=== PATIENT | female | born 1935 | race Caucasian/White ===

== ENCOUNTER 2021-12-17 13:59 | Inpatient (IN) | payer MEDICARE, OTHER, SELFPAY ==
--- NOTE | ~2021-12-17 | CT_ITS ---
EXAMINATION: CT ANGIOGRAM OF THE CHEST WITH AND WITHOUT CONTRAST (CT PULMONARY ANGIOGRAM FOR PE) CLINICAL INFORMATION: Reason for Exam weakness, sob COMPARISON: None TECHNIQUE: Prior to contrast administration, noncontrast localization images were obtained. Subsequently, multidetector volumetric imaging was performed from the thoracic inlet to below the diaphragms following the administration of 85 mL Omnipaque 350 intravenous contrast. No contrast reaction reported Sagittal, coronal, and MIP oblique sagittal reformatted images were obtained on the CT workstation, uploaded to PACS, and reviewed. This CT examination was performed using dose optimization techniques as appropriate, variously including the following: *Automated exposure control *Adjustment of mA and/or kV according to patient size (this includes techniques or standardized protocols for targeted exams where dose is matched to indication/reason for exam; i.e. extremities or head) *Use of iterative reconstruction technique Total exam dose-length product 265.98 mGy-cm FINDINGS: QUALITY OF STUDY/CONTRAST BOLUS: Satisfactory. PULMONARY ARTERIES: There is nonocclusive clot is identified in the right lower lobe pulmonary arteries most likely from. The rest of pulmonary arteries are patent. THORACIC AORTA: No aneurysm or dissection. LUNG: No focal consolidation, nodules or masses. PLEURA: No pleural effusion or pneumothorax. MEDIASTINUM: Normal heart size. No pericardial effusion. No hilar or mediastinal lymphadenopathy. No evidence of septal bowing or right heart strain. CHEST WALL/AXILLA: No axillary or internal mammary lymphadenopathy. OSSEOUS STRUCTURES: There is diffuse osteopenia, kyphotic deformity and compression deformity of a few vertebral bodies. UPPER ABDOMEN: Unremarkable. No reflux of contrast into the hepatic veins to suggest elevated right heart pressures. CT/CT angio chest PE protocol IMPRESSION: Positive for pulmonary embolism with a nonocclusive linear clots seen in secondary pulmonary arteries of right lower lobe pulmonary. VTE: positive Critical result reported to Dulce Crow NP at 8:32 PM on 12/17/2021
--- NOTE | ~2021-12-17 | CT_ITS ---
EXAMINATION: CT HEAD WITHOUT CONTRAST CLINICAL INFORMATION: Acute mental status change COMPARISON: None TECHNIQUE: Contiguous axial imaging was performed from the skull base to vertex without intravenous administration of contrast. This CT examination was performed using dose optimization techniques as appropriate, variously including the following: *Automated exposure control *Adjustment of mA and/or kV according to patient size (this includes techniques or standardized protocols for targeted exams where dose is matched to indication/reason for exam; i.e. extremities or head) *Use of iterative reconstruction technique DLP: 636.64 mGy-cm FINDINGS: There is no evidence of acute intracranial hemorrhage or territorial infarction. No abnormal mass effect or midline shift is seen. [place] to white matter differentiation is well preserved. No extra-axial fluid collections are identified. The ventricles are dilated due to central volume loss. Sulci are prominent. Within the periventricular white matter changes consistent with sequela of microangiopathy. The osseous structures and soft tissues are normal. The mastoid air cells and visualized portions of the paranasal sinuses are well aerated. CT/CT head/brain wo con IMPRESSION: No acute intracranial pathology. Sequela of microangiopathy and central atrophy.
--- NOTE | ~2021-12-17 | US_ITS ---
EXAMINATION: US VENOUS ULTRASOUND WITH DOPPLER LOWER EXTREMITY, BILATERAL CLINICAL INFORMATION: Pulmonary embolism. COMPARISON: None TECHNIQUE: Ultrasound of the deep veins is performed from the hip to the calf with compression sonography and color and pulse Doppler assessment. Spectral analysis with color-flow imaging is performed. FINDINGS: RIGHT: There is normal venous compression and respiratory variation and augmented flow. The visualized common femoral vein, superficial femoral vein, profunda femoral vein, popliteal vein, and the trifurcation region shows no evidence of deep venous thrombosis. There is a popliteal cyst measuring 2.7 x 0.8 x 1.8 cm. LEFT: There is normal venous compression and respiratory variation and augmented flow. The visualized common femoral vein, superficial femoral vein, profunda femoral vein, popliteal vein, and the trifurcation region shows no evidence of deep venous thrombosis. There is no significant popliteal fossa cyst. If the patient's symptoms persist, followup ultrasound in 5 days 7 days might be of value to exclude proximal propagation from a non-visualized calf vein. US/US venous duplex LE BI IMPRESSION: No DVT demonstrated in the bilateral lower extremities.
--- NOTE | ~2021-12-17 | CT_ITS ---
EXAMINATION: CT ABDOMEN AND PELVIS WITH CONTRAST CLINICAL INFORMATION: Abdominal pain COMPARISON: None TECHNIQUE: Multidetector volumetric images were obtained from the superior aspect of the liver through the pubic symphysis following administration 85 mL of Omnipaque 350 intravenous contrast. Sagittal and coronal reformatted images were obtained on the technologist's workstation. Oral contrast: No This CT examination was performed using dose optimization techniques as appropriate, variously including the following: *Automated exposure control *Adjustment of mA and/or kV according to patient size (this includes techniques or standardized protocols for targeted exams where dose is matched to indication/reason for exam; i.e. extremities or head) *Use of iterative reconstruction technique DLP: 642.86 mGy-cm FINDINGS: LUNG BASES: The visualized lung bases are unremarkable. LIVER, GALLBLADDER, AND BILIARY TREE: The liver is normal in size, shape, and attenuation. No focal hepatic lesion or biliary ductal dilatation is present. The gallbladder is unremarkable with no evidence of radiopaque gallstones, gallbladder wall thickening, or obvious pericholecystic inflammatory changes. PANCREAS: There is dilated pancreatic duct measured 0.4 cm no masses or pancreatitis. SPLEEN: Unremarkable. ADRENAL GLANDS: Unremarkable. KIDNEYS AND URETERS: The kidneys are normal in size, shape, and attenuation. No hydronephrosis, hydroureter, or calculi seen. No perinephric stranding. BLADDER: Unremarkable. GASTROINTESTINAL TRACT: There is large amount of feces seen through the colon There is no bowel obstruction no evidence of diverticulitis. The appendix not identified. Scattered diverticula are present. ABDOMINAL WALL: No significant hernia is appreciated. LYMPH NODES: Normal. VASCULAR: Abdominal aorta is tortuous but not dilated. PELVIC VISCERA: There is hazy mesentery in the pelvis and lower abdomen and there is questionable pelvic mass likely related uterus but due to paucity of fat, diffuse haziness of the mesentery and irregular mass lesion extending from the pelvis details obscured OSSEOUS STRUCTURES: There is diffuse osteopenia and compression deformities of L4, L3, L1 of indeterminate age, most likely due to osteopenia. CT/CT abdomen pelvis w con IMPRESSION: Technically limited study revealed large amount of retained feces. There is pelvic mass extending from the uterus correlate with pelvic ultrasound. Multiple compression deformities of lumbar spine vertebral bodies. Dilated pancreatic duct Fleischner guidelines were followed.
--- NOTE | ~2021-12-17 | US_ITS ---
EXAMINATION: US PELVIS CLINICAL INFORMATION: Pelvic mass COMPARISON: CT abdomen and pelvis 12/17/2021. TECHNIQUE: Ultrasound of the pelvis is performed using a transabdominal transducer along with Doppler. Transvaginal imaging was not tolerated by the patient. FINDINGS: Uterus: The uterus is anteverted and measures 6.5 x 2.7 x 6.1 cm. The endometrium is abnormally thickened measuring 1.6 cm which corresponds to the abnormality seen on pelvic CT. Adnexa: Neither ovary is seen. No pelvic free fluid. US/US pelvic complete IMPRESSION: Abnormally thickened endometrial stripe measuring 1.6 cm. Gynecology consultation recommended.
--- NOTE | ~2021-12-17 | MR_ITS ---
EXAMINATION: MR PELVIS WITHOUT CONTRAST CLINICAL INFORMATION: Pelvic mass COMPARISON: Previous pelvic ultrasound and abdominal and pelvic CT from earlier this month TECHNIQUE: Sagittal axial and coronal sequences through the pelvis without IV contrast. Patient refused IV contrast. FINDINGS: The uterus is deviated to the right. The uterus is anteverted and measures 7 x 3.5 x 5 cm in sagittal AP and transverse dimension. The endometrium is abnormally thickened for a postmenopausal patient measuring 1.8 cm. The endometrium appears slightly heterogeneous. There also appears to be a focal area of heterogeneous endometrial thickening measuring up to 1.0 cm in the lower uterine segment or cervix/endocervical canal. The ovaries are not seen. The bladder is normal. There is stool throughout the colon suggestive of constipation. No ascites or adenopathy is seen. No hernia is seen. Visualized vascular structures are normal. There are degenerative changes of the spine. MR/MR pelvis wo con IMPRESSION: Abnormally thickened heterogeneous endometrium measuring up to 1.8 cm. There also appears to be a second focal area of heterogeneity and thickening of the endometrium in the lower uterine segment or endocervical canal measuring up to 1.0 cm. DIRECTOR OF STUDENT SERVICES consultation recommended. Ovaries not seen. Constipation.
[2021-12-17 14:24] VITALS: BP 88/48; PULSE 72; RESP 18; TEMP 36.9; O2SAT 93; BMI 21.7
--- NOTE | 2021-12-17 15:15 | ECG_ITS ---
Test Reason : AMS Blood Pressure : / mmHG Vent. Rate : 059 BPM Atrial Rate : 059 BPM P-R Int : 160 ms QRS Dur : 096 ms QT Int : 448 ms P-R-T Axes : 042 -03 036 degrees QTc Int : 443 ms Sinus bradycardia Otherwise normal ECG No previous ECGs available Referred By: Ashley Clancy Electronically Signed By:Maximo Mujica
--- NOTE | 2021-12-17 15:31 | ED_ITS ---
HPI - Altered Mental Status General Chief Complaint: Altered Mental Status Stated Complaint: confusion quest uti Time Seen by Provider: 12/17/21 15:15 Source: patient Mode of arrival: ambulatory Limitations: altered mental status History of Present Illness HPI narrative: This is an 86-year-old female pmhx htn, hld presenting to the emergency department with her family members were concerned that she has been on altered for the past few days, she has been weak, has not been eating or drinking much, has been forgetting to take her medications X2 days. Family members tell me that at baseline she is confused however lately it seems as though this is progressing. Patient lives at home by herself. They do not think she has fallen however unsure. Family members tell me that they go to visit her daily and they checked in on her and she just did not appear like her typical self. Patient tells me she is having no pain however family members tell me they think that she is having pain in her back. Unable to answer an accurate review of systems. Patient laughs and tells me she is okay. complaint: altered mental status and confusion Onset (ago): day(s) Severity: moderate Associated symptoms: denies other symptoms Related Data Allergies Allergy/AdvReac Type Severity Reaction Status Date / Time Sulfa (Sulfonamide Allergy Unknown Verified 12/17/21 14:35 Antibiotics) Review of Systems Review of Systems: Yes Unobtainable due to mental status PMFSH Past Medical History Attestation statement: The following information was validated with the patient. Source: old records reviewed and nursing notes reviewed Medical History (Updated 12/17/21 @ 18:02 by ALEXIS Eaton) Edema HLD (hyperlipidemia) Social History Social History Advance Directives: Yes Advance Directives Information Provided: No Advance Directives on File: No Physical Exam ED Vital Signs: Vital Signs - 24 hr 12/17/21 14:24 12/17/21 16:47 Temperature 98.5 F 97.5 F Pulse Rate 72 56 Respiratory Rate 18 20 Blood Pressure 88/48 L 133/71 Pulse Oximetry 93 97 BMI result Body Mass Index 21.7 Patient noted to be slightly hypotensive. Appearance: Alert.? Oriented X3.? No acute distress.? Head: Normocephalic, atraumatic, no step-offs or deformities Eyes: Pupils equal, round and reactive to light.? ENT: Pharynx normal.? Neck: Normal inspection.? Neck supple.? CVS: Normal heart rate and rhythm.? Pulses normal.? Respiratory: No respiratory distress.? Breath sounds normal.? Abdomen: Soft and +diffusely tender..? Skin: Skin warm and dry.? Normal skin color.? Normal skin turgor.? Extremities: + 2+ non pitting edema b/l.? No calf ttp, negative keagan b/l. 5/5 strength to bilateral upper and lower extremities Back: No midline tenderness, no C-spine tenderness, full range of motion, no CVA tenderness bilaterally Neuro: Oriented X 3.? No motor deficit.? No sensory deficit. CN 2-12 intact Course Reevaluation(s) Reevaluation #1: CBC within normal limits. BNP slightly elevated to 214. Chemistry with a slightly elevated BUN however patient tolerating p.o. fluids. Will encourage hydration. Lactic acid negative. No other acute electrolyte abnormalities requiring intervention. UA negative. I suspect PE patient's change in mentation is likely secondary to an undiagnosed dementia. Patient's long-term memory appears to be better than her short term. His workup is negative patient can likely be discharged home. She could be a good candidate for PT/case management as she does not have any resources at home. Pending scans. At this time sign-out given to SHERIE Cardona. Time: 18:01 MDM - Altered Mental Status [facility] Narrative Medical decision making narrative: 1534 86 yo f presents w/ family who report ams X2 days Patient alert and oriented x4. Diffusely tender abdomen upon exam. Cranial nerves 2-12 intact. No focal neuro deficits. Lungs clear. Regular rate and rhythm. Pupils equal round and reactive to light. Unlikely that this is a stroke. Likely urinary tract infection. Will rule out electrolyte abnormalities as well. As well as a pulmonary embolism. Medical Records Attestation: I reviewed the patient's medical records. Lab Data Attestation: I reviewed the patient's lab results. Result diagrams: 12/17/21 16:05 12/17/21 17:13 Labs: Lab Results 12/17/21 12/17/21 12/17/21 Range/Units 16:05 16:05 16:05 WBC 7.5 (4.8-10.8) X10*3/uL RBC 4.71 (4.20-5.50) X10*6/uL Hgb 14.7 (12.0-16.0) g/dl Hct 44.7 (37.0-47.0) % MCV 94.9 (80.0-98.0) fL MCH 31.2 (27.0-33.0) pg MCHC 32.9 (31.0-35.0) g/dl RDW 12.1 (11.0-16.0) % Plt Count 164 (160-400) X10*3/uL MPV 10.2 (9.4-12.3) fL Immature Gran % (Auto) 0.7 H (0.0-0.4) % Neut % (Auto) 88.3 H (45-73) % Lymph % (Auto) 3.9 L (20-40) % [place] % (Auto) 6.8 (2-11) % Eos % (Auto) 0.0 (0-4) % Baso % (Auto) 0.3 (0-2) % Lymph # (Auto) 0.3 L (1.2-4.9) X10*3/uL [place] # (Auto) 0.5 (0.1-1.2) X10*3/uL Eos # (Auto) 0.0 (0.0-0.4) X10*3/uL Baso # (Auto) 0.0 (0.0-0.2) X10*3/uL Abs Immat Gran (auto) 0.05 H (0.00-0.03) X10*3/uL Absolute Neuts (auto) 6.6 (2.0-8.3) x10*3/uL Absolute Nucleated RBC 0.000 (0.0-0.012) X10*3/uL Nucleated RBC % (auto) 0.0 (0.0-0.2) /100WBC Sodium (135-145) mmol/L Potassium (3.3-5.1) mmol/L Chloride (96-108) mmol/L Carbon Dioxide (22-29) mmol/L Anion Gap (12-20) BUN (9-16) mg/dL Creatinine (0.5-1.4) mg/dL Estim Creat Clear Calc Estimated GFR Random Glucose (60-115) mg/dL Lactic Acid 2.0 (0.5-2.0) mmol/L Calcium (8.4-10.2) mg/dL Magnesium (1.6-2.6) mg/dL Total Bilirubin (0.0-1.0) mg/dL AST (5-31) U/L ALT (0-31) U/L Alkaline Phosphatase (39-117) U/L Total Creatine Kinase (26-140) U/L B-Natriuretic Peptide 214 H (<100) pg/mL Total Protein (6.5-8.0) g/dL Albumin (3.5-5.0) g/dL Lipase (8-78) U/L Urine Color Urine Appearance Urine pH (5.0-8.0) Ur Specific Industry (1.005-1.025) Urine Protein (NEG-TRACE) MG/DL Urine Glucose (UA) (NEG) MG/DL Urine Ketones (NEG) MG/DL Urine Blood (NEG) Urine Nitrite (NEG) Ur Leukocyte Esterase (NEG) COVID-19 (MARIANA) (Negative) COVID-19 Clin Com 12/17/21 12/17/21 12/17/21 Range/Units 16:15 17:13 17:13 WBC (4.8-10.8) X10*3/uL RBC (4.20-5.50) X10*6/uL Hgb (12.0-16.0) g/dl Hct (37.0-47.0) % MCV (80.0-98.0) fL MCH (27.0-33.0) pg MCHC (31.0-35.0) g/dl RDW (11.0-16.0) % Plt Count (160-400) X10*3/uL MPV (9.4-12.3) fL Immature Gran % (Auto) (0.0-0.4) % Neut % (Auto) (45-73) % Lymph % (Auto) (20-40) % [place] % (Auto) (2-11) % Eos % (Auto) (0-4) % Baso % (Auto) (0-2) % Lymph # (Auto) (1.2-4.9) X10*3/uL [place] # (Auto) (0.1-1.2) X10*3/uL Eos # (Auto) (0.0-0.4) X10*3/uL Baso # (Auto) (0.0-0.2) X10*3/uL Abs Immat Gran (auto) (0.00-0.03) X10*3/uL Absolute Neuts (auto) (2.0-8.3) x10*3/uL Absolute Nucleated RBC (0.0-0.012) X10*3/uL Nucleated RBC % (auto) (0.0-0.2) /100WBC Sodium 137 (135-145) mmol/L Potassium 4.4 (3.3-5.1) mmol/L Chloride 105 (96-108) mmol/L Carbon Dioxide 21 L (22-29) mmol/L Anion Gap 15 (12-20) BUN 27 H (9-16) mg/dL Creatinine 0.90 (0.5-1.4) mg/dL Estim Creat Clear Calc 36.1 Estimated GFR 60 Random Glucose 142 H (60-115) mg/dL Lactic Acid (0.5-2.0) mmol/L Calcium 8.6 (8.4-10.2) mg/dL Magnesium 2.4 (1.6-2.6) mg/dL Total Bilirubin 0.7 (0.0-1.0) mg/dL AST 19 (5-31) U/L ALT 9 (0-31) U/L Alkaline Phosphatase 65 (39-117) U/L Total Creatine Kinase 133 (26-140) U/L B-Natriuretic Peptide (<100) pg/mL Total Protein 6.3 L (6.5-8.0) g/dL Albumin 3.4 L (3.5-5.0) g/dL Lipase 74 (8-78) U/L Urine Color Urine Appearance Urine pH (5.0-8.0) Ur Specific [place] (1.005-1.025) Urine Protein (NEG-TRACE) MG/DL Urine Glucose (UA) (NEG) MG/DL Urine Ketones (NEG) MG/DL Urine Blood (NEG) Urine Nitrite (NEG) Ur Leukocyte Esterase (NEG) COVID-19 (MARIANA) Negative (Negative) COVID-19 Clin Com See Note 12/17/21 Range/Units 17:14 WBC (4.8-10.8) X10*3/uL RBC (4.20-5.50) X10*6/uL Hgb (12.0-16.0) g/dl Hct (37.0-47.0) % MCV (80.0-98.0) fL MCH (27.0-33.0) pg MCHC (31.0-35.0) g/dl RDW (11.0-16.0) % Plt Count (160-400) X10*3/uL MPV (9.4-12.3) fL Immature Gran % (Auto) (0.0-0.4) % Neut % (Auto) (45-73) % Lymph % (Auto) (20-40) % [place] % (Auto) (2-11) % Eos % (Auto) (0-4) % Baso % (Auto) (0-2) % Lymph # (Auto) (1.2-4.9) X10*3/uL [place] # (Auto) (0.1-1.2) X10*3/uL Eos # (Auto) (0.0-0.4) X10*3/uL Baso # (Auto) (0.0-0.2) X10*3/uL Abs Immat Gran (auto) (0.00-0.03) X10*3/uL Absolute Neuts (auto) (2.0-8.3) x10*3/uL Absolute Nucleated RBC (0.0-0.012) X10*3/uL Nucleated RBC % (auto) (0.0-0.2) /100WBC Sodium (135-145) mmol/L Potassium (3.3-5.1) mmol/L Chloride (96-108) mmol/L Carbon Dioxide (22-29) mmol/L Anion Gap (12-20) BUN (9-16) mg/dL Creatinine (0.5-1.4) mg/dL Estim Creat Clear Calc Estimated GFR Random Glucose (60-115) mg/dL Lactic Acid (0.5-2.0) mmol/L Calcium (8.4-10.2) mg/dL Magnesium (1.6-2.6) mg/dL Total Bilirubin (0.0-1.0) mg/dL AST (5-31) U/L ALT (0-31) U/L Alkaline Phosphatase (39-117) U/L Total Creatine Kinase (26-140) U/L B-Natriuretic Peptide (<100) pg/mL Total Protein (6.5-8.0) g/dL Albumin (3.5-5.0) g/dL Lipase (8-78) U/L Urine Color YELLOW Urine Appearance CLEAR Urine pH 6.0 (5.0-8.0) Ur Specific [place] 1.025 (1.005-1.025) Urine Protein TRACE (NEG-TRACE) MG/DL Urine Glucose (UA) NEG (NEG) MG/DL Urine Ketones 5 (NEG) MG/DL Urine Blood NEG (NEG) Urine Nitrite NEG (NEG) Ur Leukocyte Esterase NEG (NEG) COVID-19 (MARIAAN) (Negative) COVID-19 Clin Com ECG Data ECG #1: Attestation: I personally reviewed and interpreted this ECG as follows: ECG interpretation date: 12/17/21 ECG interpretation time: 17:24 Prior ECG tracings: available for review Critical Care Time Critical Care Time Critical Care Time: No Discharge Plan Discharge Clinical Impression: Altered mental status Patient Disposition: Still a Patient
[2021-12-17 16:09] LABS: MANUAL DIFF FLAG NO
[2021-12-17] MEDS: 0.9 % Sodium Chloride 1,000 ML 999 ML IV (16:18)
[2021-12-17 16:21] LABS: Basophils Percent Auto 0.3 % (0-2); Hematocrit 44.7 % (37.0-47.0); Hemoglobin 14.7 g/dl (12.0-16.0); Imm Gran Abs Auto 0.05 X10*3/uL (0.00-0.03); Imm Gran Pct Auto 0.7 % (0.0-0.4); Lymphocytes Absolute Auto 0.3 X10*3/uL (1.2-4.9); Lymphocytes Percent Auto 3.9 % (20-40); Mean Corpuscular HGB Conc 32.9 g/dl (31.0-35.0); Mean Corpuscular Hemoglobin 31.2 pg (27.0-33.0); Mean Corpuscular Volume 94.9 fL (80.0-98.0); Mean Platelet Volume 10.2 fL (9.4-12.3); Monocytes Absolute Auto 0.5 X10*3/uL (0.1-1.2); Monocytes Percent Auto 6.8 % (2-11); Neutrophils Absolute Auto 6.6 x10*3/uL (2.0-8.3); Neutrophils Percent Auto 88.3 % (45-73); Platelet Count 164 X10*3/uL (160-400); Red Blood Count 4.71 X10*6/uL (4.20-5.50); Red Cell Distribution Width 12.1 % (11.0-16.0); White Blood Count 7.5 X10*3/uL (4.8-10.8)
[2021-12-17 16:29] LABS: B Type Natriuretic Peptide 214 pg/mL (<100)
[2021-12-17 16:41] LABS: COVID-19 Test Negative (Negative); IDNOW Serial# 16C4AD1C
[2021-12-17 16:47] VITALS: BP 133/71; PULSE 56; RESP 20; TEMP 36.4; O2SAT 97
[2021-12-17 17:22] LABS: Appearance Urine CLEAR; Color Urine YELLOW; Glucose Urine UA NEG (NEG); Leukocyte Esterase Urine NEG (NEG); Nitrite Urine NEG (NEG); Specific Gravity - Urine 1.025 (1.005-1.025); Urine Blood NEG (NEG); Urine Ketones 5 MG/DL (NEG); Urine Protein TRACE MG/DL (NEG-TRACE)
[2021-12-17 17:41] LABS: Alanine Aminotransferase 9 U/L (0-31); Albumin Level 3.4 g/dL (3.5-5.0); Alkaline Phosphatase 65 U/L (39-117); Anion Gap 15 (12-20); Aspartate Amino Transferase 19 U/L (5-31); Bilirubin Total 0.7 mg/dL (0.0-1.0); Blood Urea Nitrogen 27 mg/dL (9-16); Calcium 8.6 mg/dL (8.4-10.2); Carbon Dioxide 21 mmol/L (22-29); Chloride 105 mmol/L (96-108); Creatinine Clr Calc Pharmacy 36.1; Estimated Glomerular Filt Rate 60; Glucose Random 142 mg/dL (60-115); Lipase 74 U/L (8-78); Magnesium 2.4 mg/dL (1.6-2.6); Potassium 4.4 mmol/L (3.3-5.1); Sodium 137 mmol/L (135-145); Total Protein 6.3 g/dL (6.5-8.0)
[2021-12-17] MEDS: iohexoL 350 MG/ML 100 ML INFUS..BTL IV (18:42)
[2021-12-17 19:00] VITALS: BP 144/76; PULSE 56; RESP 18; TEMP 36.4; O2SAT 97
[2021-12-17 20:13] VITALS: BP 163/79; PULSE 56; RESP 13; O2SAT 99
--- NOTE | 2021-12-17 21:00 | PHA.MEDREC ---
Pharmacy Consult ? Medication Reconciliation Pharmacy has completed the medication reconciliation. Daughter at bedside, no remarkable issues. Jenna Mills, SejalD
[2021-12-17 21:26] LABS: Hematocrit 41.8 % (37.0-47.0); Hemoglobin 13.9 g/dl (12.0-16.0); Mean Corpuscular HGB Conc 33.3 g/dl (31.0-35.0); Mean Corpuscular Hemoglobin 31.4 pg (27.0-33.0); Mean Corpuscular Volume 94.6 fL (80.0-98.0); Mean Platelet Volume 9.5 fL (9.4-12.3); Platelet Count 151 X10*3/uL (160-400); Red Blood Count 4.42 X10*6/uL (4.20-5.50); Red Cell Distribution Width 12.1 % (11.0-16.0); White Blood Count 6.6 X10*3/uL (4.8-10.8)
[2021-12-17 21:38] LABS: INTERNATIONAL NORM RATIO 1.2 (0.9-1.1); Prothrombin Time 13.4 SEC (9.9-13.0)
[2021-12-17 21:54] LABS: Partial Thromboplastin Time 23.5 SEC (24.1-38.0)
[2021-12-17] MEDS: Enoxaparin Sodium 60 MG/0.6 ML SYRINGE 50 MG SUBCUT (22:35)
--- NOTE | 2021-12-17 23:09 | PM.IMHP ---
History of Present Illness Date of Service: 12/17/21 Chief Complaint: Altered mental status 86-year-old female with a past medical history of hypertension, hyperlipidemia presented to the hospital with a chief complaint of altered mental status. Most of the history obtained from the patient's family who mentioned that patient was noted to be more confused than her baseline. Usually patient is forgetful but today noted to be more confused hence brought her to the hospital for further evaluation. Mentions that patient had similar episode of confusion when she had UTI. Denies any chest pain palpitations lightheadedness or dizziness. Denies any falls or trauma. Mentions walks at home with the help of a walker. Reports low back pain. Denies any stool accident or urinary incontinence. Denies any burning frequency or urgency. Denies any signs of bleeding. Review of all other systems is negative except mentioned above ER course: Per ER team patient urinalysis was negative; CT scan showed no evidence of pneumonia; CT abdomen pelvis showed constipation as well as vertebral compression fractures-age indeterminate. CT chest showed pulmonary embolism-given Lovenox. Admitted for further management [facility] Medical History (Updated 02/10/22 @ 19:23 by Roel Tariq MD) Edema Endometrial thickening on ultrasound HLD (hyperlipidemia) Labial lesion Pulmonary embolism Pertinent family history: Patient unable to provide information Social History Household Members: Unknown / Unable to assess Housing: Unknown / Unable to assess Housing Other:: pt states family and neighbor helps her out, but unclear living situation Do you presently have visiting nurse or other home services: No Patient Tobacco Use Status: Never used Tobacco Use of substances other than those prescribed or required for medical reasons: No Currently Displaying Signs/Symptoms of Drug Intoxication Withdrawal: No Have you been hit, kicked, punched, or otherwise hurt by someone within the past year? If so, by whom?: No Do you feel safe in your current relationship?: No Is there a partner from a previous relationship who is making you feel unsafe now?: No Are you made to feel afraid or neglected: No Advance Directives: Yes Advance Directives Information Provided: No Advance Directives on File: No Advance Directives Date on File: 12/18/21 Do you have thoughts of harming others: None Do you have a plan to hurt others: No Plan Recently lost weight without trying: Unsure Eating poorly because of decreased appetite: No Nutrition Risks: No Nutritional Risk Patient : No : No Poor oral hygiene: No service: No Current occupational status: retired Meds Allergies Allergy/AdvReac Type Severity Reaction Status Date / Time Sulfa (Sulfonamide Allergy Unknown Verified 12/17/21 14:35 Antibiotics) Active Medications: Current Medications Acetaminophen (Acetaminophen 325 Mg Tablet) 650 mg PO Q6H PRN PRN Reason: Pain, Mild (Pain Scale 1-3) Atenolol (Atenolol 25 Mg Tablet) 12.5 mg PO DAILY PRISCILA; Protocol Cyanocobalamin (Cyanocobalamin (Vitamin B-12) 1,000 Mcg Tablet) 1,000 mcg PO Q OTHER DAY PRISCILA Docusate Sodium (Docusate Sodium 100 Mg Capsule) 100 mg PO BID PRISCILA Enoxaparin Sodium (Enoxaparin Sodium 60 Mg/0.6 Ml Syringe) 50 mg 1 mg/kg (50 mg) SUBCUT Q12H PRISCILA Dextrose/Sodium Chloride (D51/2ns) 1,000 mls @ 75 mls/hr IVCONT .[id number] PRISCILA Magnesium Hydroxide (Milk Of Magnesia 30 Ml Oral.Susp) 30 ml PO DAILY PRN PRN Reason: Constipation Melatonin (Melatonin 3 Mg Tablet) 6 mg PO BEDTIME PRN PRN Reason: Insomnia Non-Formulary Medication (Calcium Citrate-Vitamin D3 [Citracal + D Maximum]) 1 tab PO Q OTHER DAY PRISCILA Non-Formulary Medication (Simvastatin) 1 tab PO BEDTIME PRISCILA Senna (Sennosides 8.6 Mg Tablet) 17.2 mg PO BEDTIME PRN PRN Reason: Constipation Sodium Chloride (0.9 % Sodium Chloride Flush 3 Ml Syringe) 3 ml IVFLUSH QSHIFT PRISCILA Temazepam (Temazepam 15 Mg Capsule) 15 mg PO BEDTIME PRN PRN Reason: Insomnia Home Medications Medication Instructions Recorded Confirmed Last Taken Type atenolol 25 mg tablet 12.5 mg PO DAILY 12/17/21 12/17/21 12/17/21 History calcium citrate 315 mg 1 tab PO Q OTHER DAY 12/17/21 12/17/21 12/16/21 History calcium-vitamin D3 6.25 mcg (250 unit) tablet (Citracal + Vitamin D Maximum) cyanocobalamin (vitamin B-12) 1,000 mcg PO Q OTHER DAY 12/17/21 12/17/21 12/16/21 History 1,000 mcg tablet furosemide 20 mg tablet 10 mg PO DAILY 12/17/21 12/17/21 12/17/21 History simvastatin 20 mg tablet 1 tab PO BEDTIME 12/17/21 12/17/21 12/16/21 History Physical Exam Vital Signs and Narrative: Vital Signs: Last Vital Signs Temp 97.5 F 12/17/21 19:00 Pulse 56 12/17/21 20:13 Resp 13 12/17/21 20:13 BP 163/79 H 12/17/21 20:13 Pulse Ox 99 12/17/21 20:13 BMI result Body Mass Index 21.7 Gen: Appears be in no acute distress HEENT: NCAT, Moist mucosa. Pulmonary: Vesicular breath sounds, fair air entry CVS: Normal S1-S2 Abdomen: BS+, Soft, Nontender Extremities: Warm well perfused Neuro: Alert and awake. Moves all extremities equally. Sensations equal bilaterally. Cranial nerves intact. Results Labs CBC and Chem 7: 12/22/21 05:29 12/21/21 20:00 Labs: Laboratory Results - last 24 hr 12/17/21 12/17/21 12/17/21 16:05 16:05 16:05 MCV 94.9 MCH 31.2 MCHC 32.9 RDW 12.1 Plt Count 164 MPV 10.2 Immature Gran % (Auto) 0.7 H Neut % (Auto) 88.3 H Lymph % (Auto) 3.9 L [place] % (Auto) 6.8 Eos % (Auto) 0.0 Baso % (Auto) 0.3 Lymph # (Auto) 0.3 L [place] # (Auto) 0.5 Eos # (Auto) 0.0 Baso # (Auto) 0.0 Abs Immat Gran (auto) 0.05 H Absolute Neuts (auto) 6.6 Absolute Nucleated RBC 0.000 Nucleated RBC % (auto) 0.0 PT INR APTT Anion Gap Estim Creat Clear Calc Estimated GFR Random Glucose Lactic Acid 2.0 Calcium Magnesium Total Bilirubin AST ALT Alkaline Phosphatase Total Creatine Kinase B-Natriuretic Peptide 214 H Total Protein Albumin Lipase Urine Color Urine Appearance Urine pH Ur Specific [place] Urine Protein Urine Glucose (UA) Urine Ketones Urine Blood Urine Nitrite Ur Leukocyte Esterase COVID-19 (MARIANA) COVID-19 Clin Com 12/17/21 12/17/21 12/17/21 16:15 17:13 17:13 MCV MCH MCHC RDW Plt Count MPV Immature Gran % (Auto) Neut % (Auto) Lymph % (Auto) [place] % (Auto) Eos % (Auto) Baso % (Auto) Lymph # (Auto) [place] # (Auto) Eos # (Auto) Baso # (Auto) Abs Immat Gran (auto) Absolute Neuts (auto) Absolute Nucleated RBC Nucleated RBC % (auto) PT INR APTT Anion Gap 15 Estim Creat Clear Calc 36.1 Estimated GFR 60 Random Glucose 142 H Lactic Acid Calcium 8.6 Magnesium 2.4 Total Bilirubin 0.7 AST 19 ALT 9 Alkaline Phosphatase 65 Total Creatine Kinase 133 B-Natriuretic Peptide Total Protein 6.3 L Albumin 3.4 L Lipase 74 Urine Color Urine Appearance Urine pH Ur Specific [place] Urine Protein Urine Glucose (UA) Urine Ketones Urine Blood Urine Nitrite Ur Leukocyte Esterase COVID-19 (MARIANA) Negative COVID-19 Clin Com See Note 12/17/21 12/17/21 12/17/21 17:14 21:22 21:22 MCV 94.6 MCH 31.4 MCHC 33.3 RDW 12.1 Plt Count 151 L MPV 9.5 Immature Gran % (Auto) Neut % (Auto) Lymph % (Auto) [place] % (Auto) Eos % (Auto) Baso % (Auto) Lymph # (Auto) [place] # (Auto) Eos # (Auto) Baso # (Auto) Abs Immat Gran (auto) Absolute Neuts (auto) Absolute Nucleated RBC 0.000 Nucleated RBC % (auto) 0.0 PT 13.4 H INR 1.2 H APTT 23.5 L Anion Gap Estim Creat Clear Calc Estimated GFR Random Glucose Lactic Acid Calcium Magnesium Total Bilirubin AST ALT Alkaline Phosphatase Total Creatine Kinase B-Natriuretic Peptide Total Protein Albumin Lipase Urine Color YELLOW Urine Appearance CLEAR Urine pH 6.0 Ur Specific [place] 1.025 Urine Protein TRACE Urine Glucose (UA) NEG Urine Ketones 5 Urine Blood NEG Urine Nitrite NEG Ur Leukocyte Esterase NEG COVID-19 (MARIANA) COVID-19 Clin Com Imaging Radiologist's Impressions: Impressions Abdomen/Pelvis CT 12/17/21 19:05 IMPRESSION: Technically limited study revealed large amount of retained feces. There is pelvic mass extending from the uterus correlate with pelvic ultrasound. Multiple compression deformities of lumbar spine vertebral bodies. Dilated pancreatic duct Fleischner guidelines were followed. Chest CTA 12/17/21 19:05 IMPRESSION: Positive for pulmonary embolism with a nonocclusive linear clots seen in secondary pulmonary arteries of right lower lobe pulmonary. VTE: positive Critical result reported to Dulce Crow NP at 8:32 PM on 12/17/[address] 12/17/21 19:05 IMPRESSION: No acute intracranial pathology. Sequela of microangiopathy and central atrophy. Assessment and Plan (1) AMS (altered mental status): Status: Acute (2) Pulmonary embolism: Status: Acute Plan 86-year-old female with a past medical history of hypertension, hyperlipidemia presented to the hospital with a chief complaint of altered mental status. Altered mental status: Likely toxic metabolic encephalopathy in the setting of constipation/pulmonary embolism/pelvic mass/dehydration. Urinalysis negative. CT scan showed no evidence of pneumonia. CT head negative. Supportive care. Pulmonary embolism: Will continue Lovenox at therapeutic dose. Echocardiogram Oncology consult Will also obtain venous duplex Pelvic mass: Oncology consult as mentioned. Will also obtain pelvic ultrasound. Constipation: Bowel regimen Compression fractures: CT scan showed L1, L3, L4 compression deformities-age indeterminate. Family denies any falls or trauma. Patient has known history of osteoporosis. Patient on vitamin-D/calcium supplementation. Will also obtain vitamin-D 25 hydroxy levels. Explained to the family that no neurosurgery available at [facility]-agreed to stay. PT/OT eventually Fall precautions History of hypertension/hyperlipidemia: Continue home metoprolol/simvastatin. Hold Lasix for now. DVT prophylaxis: Patient on Lovenox Code status: DNR/DNI. Confirmed with the patient's family at bedside. Quality Stroke Does the patient have a stroke diagnosis?: No VTE Prior VTE?: No VTE Risk Level:: Medical - moderate - high VTE Device Contraindication: Treatment Not Indicated VTE Drug Contraindication: N/A - Med Ordered
[2021-12-17] MEDS: Dextrose 5 % and 0.45 % NaCl 1,000 ML 75 ML IVCONT (23:27)
[2021-12-18] VITALS (8 sets, daily range): BP systolic 116–157; BP diastolic 60–71; PULSE 51–66; RESP 17–18; TEMP 36.4–36.8; O2SAT 93–98; BMI 21.7
--- NOTE | 2021-12-18 06:27 | PC.NURSE ---
Report called to Berta DODD
[2021-12-18 06:46] LABS: Hematocrit 40.1 % (37.0-47.0); Hemoglobin 13.4 g/dl (12.0-16.0); Mean Corpuscular HGB Conc 33.4 g/dl (31.0-35.0); Mean Corpuscular Hemoglobin 31.5 pg (27.0-33.0); Mean Corpuscular Volume 94.4 fL (80.0-98.0); Mean Platelet Volume 9.7 fL (9.4-12.3); Platelet Count 159 X10*3/uL (160-400); Red Blood Count 4.25 X10*6/uL (4.20-5.50); Red Cell Distribution Width 12.2 % (11.0-16.0); White Blood Count 5.7 X10*3/uL (4.8-10.8)
[2021-12-18 06:50] LABS: MANUAL DIFF FLAG NO
[2021-12-18 06:51] LABS: Basophils Absolute Auto 0.1 X10*3/uL (0.0-0.2); Basophils Percent Auto 0.9 % (0-2); Eosinophils Absolute Auto 0.1 X10*3/uL (0.0-0.4); Eosinophils Percent Auto 1.8 % (0-4); Imm Gran Abs Auto 0.03 X10*3/uL (0.00-0.03); Imm Gran Pct Auto 0.5 % (0.0-0.4); Lymphocytes Absolute Auto 0.8 X10*3/uL (1.2-4.9); Lymphocytes Percent Auto 13.9 % (20-40); Monocytes Absolute Auto 0.6 X10*3/uL (0.1-1.2); Monocytes Percent Auto 10.7 % (2-11); Neutrophils Absolute Auto 4.1 x10*3/uL (2.0-8.3); Neutrophils Percent Auto 72.2 % (45-73)
[2021-12-18 07:01] LABS: Anion Gap 14 (12-20); Blood Urea Nitrogen 17 mg/dL (9-16); Calcium 8.7 mg/dL (8.4-10.2); Carbon Dioxide 24 mmol/L (22-29); Chloride 103 mmol/L (96-108); Creatinine Clr Calc Pharmacy 41.1; Estimated Glomerular Filt Rate > 60; Glucose Random 101 mg/dL (60-115); Potassium 3.6 mmol/L (3.3-5.1); Sodium 137 mmol/L (135-145)
[2021-12-18] MEDS: Apixaban 5 MG TABLET 10 MG PO ×2 (09:01→20:42)
[2021-12-18] MEDS: atenoloL 25 MG TABLET 12.5 MG PO (09:02)
[2021-12-18] MEDS: Docusate Sodium 100 MG CAPSULE PO ×2 (09:02→20:42)
[2021-12-18] MEDS: Acetaminophen 325 MG TABLET 650 MG PO (09:02)
--- NOTE | 2021-12-18 09:30 | HO.PM.IMPN ---
Subjective Subjective Date of Service: 12/18/21 Interval History: cC: weakness interval history: no complaints Cardiovascular Cardiovascular: Reports no additional cardiovascular complaints Respiratory Respiratory: Reports no additional respiratory complaints Physical Exam Vital Signs: Vital Signs: Last Vital Signs Temp 97.7 F 12/18/21 08:00 Pulse 66 12/18/21 08:00 Resp 18 12/18/21 08:00 BP 157/71 H 12/18/21 08:00 Pulse Ox 98 12/18/21 08:00 BMI result Body Mass Index 21.7 General: AO X 2, no acute distress Resp: CTA bilateral, no accessory muscles used CVS: S1,S2,RRR GI: soft, non tender, non distended Neuro: motor grossly intact, alert Psych: appropriate affect, impaired insight Objective Data Active Medications Acetaminophen (Acetaminophen 325 Mg Tablet) 650 mg PO Q6H PRN PRN Reason: Pain, Mild (Pain Scale 1-3) Last Admin: 12/18/21 09:02 Dose: 650 mg Documented by: LOUIS Apixaban (Apixaban 5 Mg Tablet) 10 mg PO BID [facility] Stop: 12/24/21 21:01 Last Admin: 12/18/21 09:01 Dose: 10 mg Documented by: LOUIS Atenolol (Atenolol 25 Mg Tablet) 12.5 mg PO DAILY [facility]; Protocol Last Admin: 12/18/21 09:02 Dose: 12.5 mg Documented by: LOUIS Atorvastatin Calcium (Atorvastatin Calcium 10 Mg Tablet) 10 mg PO BEDTIME [facility] Calcium Carbonate/Cholecalciferol (Calcium + Vitamin D 250 Mg Tablet) 250 mg PO Q2D [facility] Cyanocobalamin (Cyanocobalamin (Vitamin B-12) 1,000 Mcg Tablet) 1,000 mcg PO Q2D [facility] Docusate Sodium (Docusate Sodium 100 Mg Capsule) 100 mg PO BID [facility] Last Admin: 12/18/21 09:02 Dose: 100 mg Documented by: LOUIS Magnesium Hydroxide (Milk Of Magnesia 30 Ml Oral.Susp) 30 ml PO DAILY PRN PRN Reason: Constipation Polyethylene Glycol (Polyethylene Glycol 3350 17 Gm Powd.Pack) 17 gm PO ONCE ONE Stop: 12/18/21 09:26 Senna (Sennosides 8.6 Mg Tablet) 17.2 mg PO BEDTIME PRN PRN Reason: Constipation Sodium Chloride (0.9 % Sodium Chloride Flush 3 Ml Syringe) 3 ml IVFLUSH QSHIFT PRISCILA Last Admin: 12/18/21 09:01 Dose: Not Given Documented by: LOUIS Non-Admin Reason: IV Running Labs CBC & Chem 7: 12/18/21 06:39 12/18/21 06:39 Labs: Laboratory Results - last 24 hr 12/17/21 12/17/21 12/17/21 16:05 16:05 16:05 MCV 94.9 MCH 31.2 MCHC 32.9 RDW 12.1 Plt Count 164 MPV 10.2 Immature Gran % (Auto) 0.7 H Neut % (Auto) 88.3 H Lymph % (Auto) 3.9 L [place] % (Auto) 6.8 Eos % (Auto) 0.0 Baso % (Auto) 0.3 Lymph # (Auto) 0.3 L [place] # (Auto) 0.5 Eos # (Auto) 0.0 Baso # (Auto) 0.0 Abs Immat Gran (auto) 0.05 H Absolute Neuts (auto) 6.6 Absolute Nucleated RBC 0.000 Nucleated RBC % (auto) 0.0 PT INR APTT Anion Gap Estim Creat Clear Calc Estimated GFR Random Glucose Lactic Acid 2.0 Calcium Magnesium Total Bilirubin AST ALT Alkaline Phosphatase Total Creatine Kinase B-Natriuretic Peptide 214 H Total Protein Albumin Lipase Urine Color Urine Appearance Urine pH Ur Specific [place] Urine Protein Urine Glucose (UA) Urine Ketones Urine Blood Urine Nitrite Ur Leukocyte Esterase COVID-19 (MARIANA) COVID-19 Clin Com 12/17/21 12/17/21 12/17/21 16:15 17:13 17:13 MCV MCH MCHC RDW Plt Count MPV Immature Gran % (Auto) Neut % (Auto) Lymph % (Auto) [place] % (Auto) Eos % (Auto) Baso % (Auto) Lymph # (Auto) [place] # (Auto) Eos # (Auto) Baso # (Auto) Abs Immat Gran (auto) Absolute Neuts (auto) Absolute Nucleated RBC Nucleated RBC % (auto) PT INR APTT Anion Gap 15 Estim Creat Clear Calc 36.1 Estimated GFR 60 Random Glucose 142 H Lactic Acid Calcium 8.6 Magnesium 2.4 Total Bilirubin 0.7 AST 19 ALT 9 Alkaline Phosphatase 65 Total Creatine Kinase 133 B-Natriuretic Peptide Total Protein 6.3 L Albumin 3.4 L Lipase 74 Urine Color Urine Appearance Urine pH Ur Specific [place] Urine Protein Urine Glucose (UA) Urine Ketones Urine Blood Urine Nitrite Ur Leukocyte Esterase COVID-19 (MARIANA) Negative COVID-19 Clin Com See Note 12/17/21 12/17/21 12/17/21 17:14 21:22 21:22 MCV 94.6 MCH 31.4 MCHC 33.3 RDW 12.1 Plt Count 151 L MPV 9.5 Immature Gran % (Auto) Neut % (Auto) Lymph % (Auto) [place] % (Auto) Eos % (Auto) Baso % (Auto) Lymph # (Auto) [place] # (Auto) Eos # (Auto) Baso # (Auto) Abs Immat Gran (auto) Absolute Neuts (auto) Absolute Nucleated RBC 0.000 Nucleated RBC % (auto) 0.0 PT 13.4 H INR 1.2 H APTT 23.5 L Anion Gap Estim Creat Clear Calc Estimated GFR Random Glucose Lactic Acid Calcium Magnesium Total Bilirubin AST ALT Alkaline Phosphatase Total Creatine Kinase B-Natriuretic Peptide Total Protein Albumin Lipase Urine Color YELLOW Urine Appearance CLEAR Urine pH 6.0 Ur Specific [place] 1.025 Urine Protein TRACE Urine Glucose (UA) NEG Urine Ketones 5 Urine Blood NEG Urine Nitrite NEG Ur Leukocyte Esterase NEG COVID-19 (MAR[facility]NA) COVID-19 Clin Com 12/18/21 12/18/21 06:39 06:39 MCV 94.4 MCH 31.5 MCHC 33.4 RDW 12.2 Plt Count 159 L MPV 9.7 Immature Gran % (Auto) 0.5 H Neut % (Auto) 72.2 Lymph % (Auto) 13.9 L [place] % (Auto) 10.7 Eos % (Auto) 1.8 Baso % (Auto) 0.9 Lymph # (Auto) 0.8 L [place] # (Auto) 0.6 Eos # (Auto) 0.1 Baso # (Auto) 0.1 Abs Immat Gran (auto) 0.03 Absolute Neuts (auto) 4.1 Absolute Nucleated RBC 0.000 Nucleated RBC % (auto) 0.0 PT INR APTT Anion Gap 14 Estim Creat Clear Calc 41.1 Estimated GFR > 60 Random Glucose 101 Lactic Acid Calcium 8.7 Magnesium Total Bilirubin AST ALT Alkaline Phosphatase Total Creatine Kinase B-Natriuretic Peptide Total Protein Albumin Lipase Urine Color Urine Appearance Urine pH Ur Specific [place] Urine Protein Urine Glucose (UA) Urine Ketones Urine Blood Urine Nitrite Ur Leukocyte Esterase COVID-19 (MARIANA) COVID-19 Clin Com Assessment and Plan (1) Pulmonary embolism: Status: Acute Plan 86F presented with weakness, found to have PE and pelvic mass acute pulmonary embolism asymptomatic non occulisive, in secondary pulm arteries of RLL no need for echo at this time change to eliquis 10mg bid for 7 days then decrease to 5mg bid monitor closely for gi bleed, A/C tolerance pelvic mass concerning for malignancy follow up pelvic US oncology eval dementia likely alzheimers progressing complression fractures due to osteopenia ambulate as tolerated htn atenolol hld statin DNR/DNI reason for continued hospitalization: close monitoring while starting anticoagulation, high risk for bleeding due to fraility, old age. Quality Stroke Does the patient have a stroke diagnosis?: No VTE Prior VTE?: No VTE Risk Level:: Medical - moderate - high VTE Device Contraindication: Treatment Not Indicated VTE Drug Contraindication: N/A - Med Ordered
[2021-12-18] MEDS: polyethylene glycoL 3350 17 GM POWD.PACK PO (09:37)
[2021-12-18] MEDS: Cyanocobalamin (Vitamin B-12) 1,000 MCG TABLET 1000 MCG PO (09:38)
[2021-12-18] MEDS: Calcium + Vitamin D 250 MG TABLET PO (09:38)
--- NOTE | 2021-12-18 12:18 | P.CNHO_ITS ---
Subjective - Subjective Chief complaint: pulmonary embolism Patient: new to practice Consult date: 12/18/21 Primary Care Provider: Unknown Physician HPI - Consult Narrative Reason for consult: pulmonary embolism pelvic mas Narrative: Khushboo Collins is a 86 year old female admitted yesterday for PE RLL. A CT of abdomen and pelvis showed possible pelvic mass. No vaginal bleeding has been seen or reported. She has richard poor memory.Today she is comfortable. Her family says she has been weak lately. Review of Systems - Constitutional Reports anorexia - Cardiovascular Reports fast heart rate - Respiratory Reports other - Gastrointestinal Reports other - Genitourinary Reports absent period - Musculoskeletal Reports muscle weakness - Neurologic Reports system reviewed and no additional complaints, except as documented - Psychiatric Reports behavioral changes [facility] Medical History: Medical History (Last Updated 12/17/21 @ 14:27 by Franchesca Dennis) Edema HLD (hyperlipidemia) Social History: Social History Advance Directives: Advance Directives: Yes Advance Directives Information Provided: No Advance Directives on File: No Home Medications and Allergies Current Medications: Current Medications Acetaminophen (Acetaminophen 325 Mg Tablet) 650 mg PO Q6H PRN PRN Reason: Pain, Mild (Pain Scale 1-3) Last Admin: 12/18/21 09:02 Dose: 650 mg Documented by: Apixaban (Apixaban 5 Mg Tablet) 10 mg PO BID [facility] Stop: 12/24/21 21:01 Last Admin: 12/18/21 09:01 Dose: 10 mg Documented by: Atenolol (Atenolol 25 Mg Tablet) 12.5 mg PO DAILY [facility]; Protocol Last Admin: 12/18/21 09:02 Dose: 12.5 mg Documented by: Atorvastatin Calcium (Atorvastatin Calcium 10 Mg Tablet) 10 mg PO BEDTIME [facility] Calcium Carbonate/Cholecalciferol (Calcium + Vitamin D 250 Mg Tablet) 250 mg PO Q2D [facility] Last Admin: 12/18/21 09:38 Dose: 250 mg Documented by: Cyanocobalamin (Cyanocobalamin (Vitamin B-12) 1,000 Mcg Tablet) 1,000 mcg PO Q2D [facility] Last Admin: 12/18/21 09:38 Dose: 1,000 mcg Documented by: Docusate Sodium (Docusate Sodium 100 Mg Capsule) 100 mg PO BID [facility] Last Admin: 12/18/21 09:02 Dose: 100 mg Documented by: Magnesium Hydroxide (Milk Of Magnesia 30 Ml Oral.Susp) 30 ml PO DAILY PRN PRN Reason: Constipation Senna (Sennosides 8.6 Mg Tablet) 17.2 mg PO BEDTIME PRN PRN Reason: Constipation Sodium Chloride (0.9 % Sodium Chloride Flush 3 Ml Syringe) 3 ml IVFLUSH QSHIFT [facility] Last Admin: 12/18/21 09:01 Dose: Not Given Documented by: Home Medications Medication Instructions Recorded Confirmed Type atenolol 25 mg tablet 12.5 mg PO DAILY 12/17/21 12/17/21 History calcium citrate 315 mg 1 tab PO Q OTHER DAY 12/17/21 12/17/21 History calcium-vitamin D3 6.25 mcg (250 unit) tablet (Citracal + Vitamin D Maximum) cyanocobalamin (vitamin B-12) 1,000 mcg PO Q OTHER DAY 12/17/21 12/17/21 History 1,000 mcg tablet furosemide 20 mg tablet 10 mg PO DAILY 12/17/21 12/17/21 History simvastatin 20 mg tablet 1 tab PO BEDTIME 12/17/21 12/17/21 History Allergies Allergy/AdvReac Type Severity Reaction Status Date / Time Sulfa (Sulfonamide Allergy Unknown Verified 12/17/21 14:35 Antibiotics) Physical Exam Vital signs: Vital Signs Temp 97.5 F 12/18/21 11:38 Pulse 55 12/18/21 11:38 Resp 17 12/18/21 11:38 BP 131/71 12/18/21 11:38 Pulse Ox 98 12/18/21 11:38 Intake & Output 12/17/21 12/18/21 12/18/21 18:59 06:59 18:59 Intake Total 1000 / 1000 1000 / 1000 Balance 1000 / 1000 1000 / 1000 Intake: Intake, IV Amount 1000 / 1000 1000 / 1000 0.9 % Sodium Chloride 1,000 ml 1000 / 1000 @ 999 mls/hr IV .Q1H1M [facility] Rx#: [id number] Dextrose 5 % and 0.45 % NaCl 1, 1000 / 1000 000 ml @ 75 mls/hr IVCONT . [id number] [facility] Rx#:[id number] Other: Weight 53.977 kg Weight 53.977 kg - Constitutional Present: no acute distress - Routine HEENT Exam Head: Present: atraumatic - Routine Neck Exam Present: supple, full ROM - Routine Cardiovascular Exam Cardiovascular: Present: RRR - Routine Abdominal Exam Present: soft Hem/Onc Consult Result - Labs CBC & Chem 7: 12/18/21 06:39 12/18/21 06:39 Labs: Short CBC 12/17/21 12/17/21 12/18/21 Range/Units 16:05 21:22 06:39 WBC 7.5 6.6 5.7 (4.8-10.8) X10*3/uL Hgb 14.7 13.9 13.4 (12.0-16.0) g/dl Hct 44.7 41.8 40.1 (37.0-47.0) % Plt Count 164 151 L 159 L (160-400) X10*3/uL BMP 12/17/21 12/18/21 17:13 06:39 Sodium 137 137 Potassium 4.4 3.6 Chloride 105 103 Carbon Dioxide 21 L 24 BUN 27 H 17 H Creatinine 0.90 0.79 Calcium 8.6 8.7 Cardiac Enzymes 12/17/21 Range/Units 17:13 Total Creatine Kinase 133 (26-140) U/L Liver Function 12/17/21 Range/Units 17:13 Total Bilirubin 0.7 (0.0-1.0) mg/dL AST 19 (5-31) U/L ALT 9 (0-31) U/L Alkaline Phosphatase 65 (39-117) U/L Albumin 3.4 L (3.5-5.0) g/dL Urine 12/17/21 Range/Units 17:14 Urine Color YELLOW Urine Appearance CLEAR Urine pH 6.0 (5.0-8.0) Ur Specific [place] 1.025 (1.005-1.025) Urine Protein TRACE (NEG-TRACE) MG/DL Urine Glucose (UA) NEG (NEG) MG/DL Assessment and Plan Patient Active problem list reviewed?: Yes (1) Pulmonary embolism Status: Acute Assessment and plan: I agree with the Loriquis. She is likely hypercoaguable. (2) Abdominal mass Status: Acute Assessment and plan: I will review the CT. Recommend pelvic ultrasound with transvaginal views. Recommend consulting OPERATIONAL REVIEW SERGEANT for biopsy if possible. - Time Spent With Patient Time Spent with Patient (in minutes): 25
[2021-12-18] MEDS: 0.9 % Sodium Chloride Flush 3 ML SYRINGE IVFLUSH ×2 (18:26→20:42)
[2021-12-18] MEDS: Atorvastatin Calcium 10 MG TABLET PO (20:42)
[2021-12-18 21:11] LABS: INTERNATIONAL NORM RATIO 1.3 (0.9-1.1); Prothrombin Time 15.2 SEC (9.9-13.0)
[2021-12-18 23:44] LABS: Vitamin D 25-OH Total 54.6 ng/mL (>30)
[2021-12-19 04:00] VITALS: BP 124/62; PULSE 61; RESP 17; TEMP 36.7; O2SAT 95
[2021-12-19 05:31] LABS: Hematocrit 41.8 % (37.0-47.0); Hemoglobin 13.9 g/dl (12.0-16.0); Mean Corpuscular HGB Conc 33.3 g/dl (31.0-35.0); Mean Corpuscular Hemoglobin 31.4 pg (27.0-33.0); Mean Corpuscular Volume 94.4 fL (80.0-98.0); Mean Platelet Volume 9.7 fL (9.4-12.3); Platelet Count 162 X10*3/uL (160-400); Red Blood Count 4.43 X10*6/uL (4.20-5.50); Red Cell Distribution Width 12.2 % (11.0-16.0); White Blood Count 5.7 X10*3/uL (4.8-10.8)
[2021-12-19 05:47] LABS: Anion Gap 15 (12-20); Blood Urea Nitrogen 11 mg/dL (9-16); Calcium 8.8 mg/dL (8.4-10.2); Carbon Dioxide 24 mmol/L (22-29); Chloride 105 mmol/L (96-108); Creatinine Clr Calc Pharmacy 46.4; Estimated Glomerular Filt Rate > 60; Glucose Fasting 89 mg/dL (60-99); Potassium 4.2 mmol/L (3.3-5.1); Sodium 140 mmol/L (135-145)
[2021-12-19 07:58] VITALS: BP 137/78; PULSE 63; RESP 18; TEMP 36.8; O2SAT 97
[2021-12-19] MEDS: atenoloL 25 MG TABLET 12.5 MG PO (08:49)
[2021-12-19] MEDS: Docusate Sodium 100 MG CAPSULE PO ×2 (08:50→19:51)
[2021-12-19] MEDS: Acetaminophen 325 MG TABLET 650 MG PO (08:50)
[2021-12-19] MEDS: Apixaban 5 MG TABLET 10 MG PO ×2 (08:51→19:51)
[2021-12-19] MEDS: 0.9 % Sodium Chloride Flush 3 ML SYRINGE IVFLUSH ×3 (08:51→22:07)
--- NOTE | 2021-12-19 11:54 | P.PNIM_ITS ---
Subjective Subjective Date of Service: 12/19/21 Interval History: cC: weakness interval history: no complaints Cardiovascular Cardiovascular: Reports no additional cardiovascular complaints Respiratory Respiratory: Reports no additional respiratory complaints Physical Exam Vital Signs: Vital Signs: Last Vital Signs Temp 98.3 F 12/19/21 07:58 Pulse 63 12/19/21 07:58 Resp 18 12/19/21 07:58 BP 137/78 12/19/21 07:58 Pulse Ox 97 12/19/21 07:58 BMI result Body Mass Index 21.7 General: AO X 2, no acute distress Resp:? CTA bilateral, no accessory muscles used CVS: S1,S2,RRR GI: soft, non tender, non distended Neuro:? motor grossly intact, alert Psych: appropriate affect, impaired insight? Objective Data Active Medications Acetaminophen (Acetaminophen 325 Mg Tablet) 650 mg PO Q6H PRN PRN Reason: Pain, Mild (Pain Scale 1-3) Last Admin: 12/19/21 08:50 Dose: 650 mg Documented by: LOUIS Apixaban (Apixaban 5 Mg Tablet) 10 mg PO BID [facility] Stop: 12/24/21 21:01 Last Admin: 12/19/21 08:51 Dose: 10 mg Documented by: LOUIS Atenolol (Atenolol 25 Mg Tablet) 12.5 mg PO DAILY [facility]; Protocol Last Admin: 12/19/21 08:49 Dose: 12.5 mg Documented by: LOUIS Atorvastatin Calcium (Atorvastatin Calcium 10 Mg Tablet) 10 mg PO BEDTIME [facility] Last Admin: 12/18/21 20:42 Dose: 10 mg Documented by: CLYDE Calcium Carbonate/Cholecalciferol (Calcium + Vitamin D 250 Mg Tablet) 250 mg PO Q2D [facility] Last Admin: 12/18/21 09:38 Dose: 250 mg Documented by: LOUIS Cyanocobalamin (Cyanocobalamin (Vitamin B-12) 1,000 Mcg Tablet) 1,000 mcg PO Q2D [facility] Last Admin: 12/18/21 09:38 Dose: 1,000 mcg Documented by: LOUIS Docusate Sodium (Docusate Sodium 100 Mg Capsule) 100 mg PO BID [facility] Last Admin: 12/19/21 08:50 Dose: 100 mg Documented by: LOUIS Magnesium Hydroxide (Milk Of Magnesia 30 Ml Oral.Susp) 30 ml PO DAILY PRN PRN Reason: Constipation Senna (Sennosides 8.6 Mg Tablet) 17.2 mg PO BEDTIME PRN PRN Reason: Constipation Sodium Chloride (0.9 % Sodium Chloride Flush 3 Ml Syringe) 3 ml IVFLUSH QSHIFT [facility] Last Admin: 12/19/21 08:51 Dose: 3 ml Documented by: LOUIS Labs CBC & Chem 7: 12/19/21 05:04 12/19/21 05:04 Labs: Laboratory Results - last 24 hr 12/18/21 12/18/21 12/19/21 06:39 20:55 05:04 MCV 94.4 MCH 31.4 MCHC 33.3 RDW 12.2 Plt Count 162 MPV 9.7 Absolute Nucleated RBC 0.000 Nucleated RBC % (auto) 0.0 PT 15.2 H INR 1.3 H Anion Gap Estim Creat Clear Calc Estimated GFR Fasting Glucose Calcium 25-OH Vitamin D Total 54.6 12/19/21 05:04 MCV MCH MCHC RDW Plt Count MPV Absolute Nucleated RBC Nucleated RBC % (auto) PT INR Anion Gap 15 Estim Creat Clear Calc 46.4 Estimated GFR > 60 Fasting Glucose 89 Calcium 8.8 25-OH Vitamin D Total Microbiology Microbiology Results: Microbiology 12/17/21 16:14 Blood Culture - Preliminary Blood - Venous No growth after 24 hours. 12/17/21 16:14 Blood Culture - Preliminary Blood - Venous No growth after 24 hours. 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
--- NOTE | 2021-12-19 12:27 | PM.GYNCN ---
ADMINISTRATIVE AIDE - CN: HPI Data of Consult Consult date: 12/19/21 Requesting Physician: Cuong Richard MD Primary Care Provider: Unknown Physician Consult Narrative Narrative: I was consulted on Khushboo Collins who is a 86 year old female who presented the emergency room with change in her mental status; she was diagnosed with dehydration, acute kidney injury , PE and the following abnormal finding on CT scan: There is hazy mesentery in the pelvis and lower abdomen and there is questionable pelvic mass likely related uterus but due to paucity of fat, diffuse haziness of the mesentery and irregular mass lesion extending from the pelvis details obscured? A pelvic ultrasound was done today and showed the following: Uterus: The uterus is anteverted and measures 6.5 x 2.7 x 6.1 cm. The endometrium is abnormally thickened measuring 1.6 cm which corresponds to the abnormality seen on pelvic CT. Adnexa: Neither ovary is seen. No pelvic free fluid. 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 - Review of Systems Review of Systems ROS Unobtainable: All systems reviewed & are unremarkable except as noted in HPI and below Cardiovascular: Denies Palpatations, Loss of consciousness or Chest pain Respiratory: Denies Cough, Wheezing or Shortness of breath Musculoskeletal: Denies Low back pain Gastrointestinal: Denies Heartburn, Constipation, Diarrhea, Nausea or Vomiting Genitourinary: Denies Pain with urination, Burning with urination or Urinary frequency Neurological: Denies Migranes Psychological: Denies Depression [facility] Past Medical History Medical History Edema HLD (hyperlipidemia) Social History Social History Household Members: Unknown / Unable to assess Housing: Unknown / Unable to assess Housing Other:: pt states family and neighbor helps her out, but unclear living situation Do you presently have visiting nurse or other home services: No Patient Tobacco Use Status: Never used Tobacco Use of substances other than those prescribed or required for medical reasons: No Currently Displaying Signs/Symptoms of Drug Intoxication Withdrawal: No Have you been hit, kicked, punched, or otherwise hurt by someone within the past year? If so, by whom?: No Do you feel safe in your current relationship?: No Is there a partner from a previous relationship who is making you feel unsafe now?: No Are you made to feel afraid or neglected: No Advance Directives: Yes Advance Directives Information Provided: No Advance Directives on File: No Advance Directives Date on File: 12/18/21 Do you have thoughts of harming others: None Do you have a plan to hurt others: No Plan Recently lost weight without trying: Unsure Eating poorly because of decreased appetite: No Nutrition Risks: No Nutritional Risk Patient : No : No Poor oral hygiene: No service: No Current occupational status: retired [employer] Allergies Allergy/AdvReac Type Severity Reaction Status Date / Time Sulfa (Sulfonamide Allergy Unknown Verified 12/17/21 14:35 Antibiotics) Active Medications: Current Medications Acetaminophen (Acetaminophen 325 Mg Tablet) 650 mg PO Q6H PRN PRN Reason: Pain, Mild (Pain Scale 1-3) Last Admin: 12/19/21 08:50 Dose: 650 mg Documented by: Apixaban (Apixaban 5 Mg Tablet) 10 mg PO BID [facility] Stop: 12/24/21 21:01 Last Admin: 12/19/21 08:51 Dose: 10 mg Documented by: Atenolol (Atenolol 25 Mg Tablet) 12.5 mg PO DAILY [facility]; Protocol Last Admin: 12/19/21 08:49 Dose: 12.5 mg Documented by: Atorvastatin Calcium (Atorvastatin Calcium 10 Mg Tablet) 10 mg PO BEDTIME [facility] Last Admin: 12/18/21 20:42 Dose: 10 mg Documented by: Calcium Carbonate/Cholecalciferol (Calcium + Vitamin D 250 Mg Tablet) 250 mg PO Q2D [facility] Last Admin: 12/18/21 09:38 Dose: 250 mg Documented by: Cyanocobalamin (Cyanocobalamin (Vitamin B-12) 1,000 Mcg Tablet) 1,000 mcg PO Q2D [facility] Last Admin: 12/18/21 09:38 Dose: 1,000 mcg Documented by: Docusate Sodium (Docusate Sodium 100 Mg Capsule) 100 mg PO BID [facility] Last Admin: 12/19/21 08:50 Dose: 100 mg Documented by: Magnesium Hydroxide (Milk Of Magnesia 30 Ml Oral.Susp) 30 ml PO DAILY PRN PRN Reason: Constipation Senna (Sennosides 8.6 Mg Tablet) 17.2 mg PO BEDTIME PRN PRN Reason: Constipation Sodium Chloride (0.9 % Sodium Chloride Flush 3 Ml Syringe) 3 ml IVFLUSH QSHIFT [facility] Last Admin: 12/19/21 08:51 Dose: 3 ml Documented by: Home Medications Medication Instructions Recorded Confirmed Last Taken Type atenolol 25 mg tablet 12.5 mg PO DAILY 12/17/21 12/17/21 12/17/21 History calcium citrate 315 mg 1 tab PO Q OTHER DAY 12/17/21 12/17/21 12/16/21 History calcium-vitamin D3 6.25 mcg (250 unit) tablet (Citracal + Vitamin D Maximum) cyanocobalamin (vitamin B-12) 1,000 mcg PO Q OTHER DAY 12/17/21 12/17/21 12/16/21 History 1,000 mcg tablet furosemide 20 mg tablet 10 mg PO DAILY 12/17/21 12/17/21 12/17/21 History simvastatin 20 mg tablet 1 tab PO BEDTIME 12/17/21 12/17/21 12/16/21 History ADMINISTRATIVE AIDE Physical Exam Vitals Vital signs: Temp Pulse Resp BP Pulse Ox 98.3 F 63 18 137/78 97 12/19/21 07:58 12/19/21 07:58 12/19/21 07:58 12/19/21 07:58 12/19/21 07:58 BMI result Body Mass Index 21.7 Constitutional General Appearance: Healthy appearing, Well-nourished and Well-developed Psychiatric Mood and Affect: active and alert, normal mood and normal affect Skin Appearance: No rashes and No lesions Lungs Respiratory Effort: No intercostal retractions Auscultation: Clear to auscultation Cardiovascular Auscultation: RRR Abdomen Auscultation/Inspection/Palpation: Normal bowel sounds, Soft, Non-distended and No tenderness Female Genitalia (Pelvic) Bladder/Urethra: Normal meatus Lesion: Hyperpigmentation (2 lesion left labia majora ) Vagina: Nontender and No erythema Cervix: Grossly normal and No cervical motion tenderness Uterus: Normal size and Nontender Adnexa/Parametria: Adnexal Mass: None ADMINISTRATIVE AIDE - Results Labs CBC & Chem 7: 12/22/21 05:29 12/21/21 20:00 Labs: Short CBC 12/19/21 Range/Units 05:04 WBC 5.7 (4.8-10.8) X10*3/uL Hgb 13.9 (12.0-16.0) g/dl Hct 41.8 (37.0-47.0) % Plt Count 162 (160-400) X10*3/uL BMP 12/19/21 05:04 Sodium 140 Potassium 4.2 Chloride 105 Carbon Dioxide 24 BUN 11 Creatinine 0.70 Calcium 8.8 Urine 12/17/21 Range/Units 17:14 Urine Color YELLOW Urine Appearance CLEAR Urine pH 6.0 (5.0-8.0) Ur Specific [place] 1.025 (1.005-1.025) Urine Protein TRACE (NEG-TRACE) MG/DL Urine Glucose (UA) NEG (NEG) MG/DL Imaging US - abdomen: Radiologist's impression: ITS Impressions Abdomen/Pelvis CT 12/17/21 19:05 IMPRESSION: Technically limited study revealed large amount of retained feces. There is pelvic mass extending from the uterus correlate with pelvic ultrasound. Multiple compression deformities of lumbar spine vertebral bodies. Dilated pancreatic duct Fleischner guidelines were followed. Chest CTA 12/17/21 19:05 IMPRESSION: Positive for pulmonary embolism with a nonocclusive linear clots seen in secondary pulmonary arteries of right lower lobe pulmonary. VTE: positive Critical result reported to Dulce Crow GEOPHYSICS SCIENTIST at 8:32 PM on 12/17/[address] 12/17/21 19:05 IMPRESSION: No acute intracranial pathology. Sequela of microangiopathy and central atrophy. Pelvis Ultrasound 12/19/21 08:16 IMPRESSION: Abnormally thickened endometrial stripe measuring 1.6 cm. Gynecology consultation recommended. Venous Duplex 12/19/21 08:31 IMPRESSION: No DVT demonstrated in the bilateral lower extremities. Assessment and Plan (1) Pelvic mass: Status: Acute Since there is a discrepancy in the findings between CT scan of the pelvis and pelvic ultrasound, I recommended a pelvic MRI to diagnose whether the patient has or not a pelvic mass, if there is a pelvic mass will treat accordingly (2) Endometrial thickening on ultrasound: Status: Acute Since the patient does not have a history of vaginal bleeding, a thickened endometrium by ultrasound in the setting of no vaginal bleeding does not warrant any further investigation. Instructed the patient's daughter to call if the patient develops any vaginal bleeding then will proceed with endometrial sampling to rule out endometrial pathology including endometrial hyperplasia, malignancy or polyp. All questions answered, the patient and her daughter verbalized understanding (3) Labial lesion: Status: Acute Explained to the patient and her daughter the findings on physical exam, 2 labial lesions; I recommended outpatient biopsies of the vulvar lesions to exclude JAYCE/melanoma or any other pathology; instructed the patient and her daughter to schedule an appointment in the office as soon as possible. Will check the results and treat accordingly
[2021-12-19 16:00] VITALS: BP 161/72; PULSE 49; RESP 18; TEMP 36.1; O2SAT 100
--- NOTE | 2021-12-19 16:18 | MHC.CM.PN ---
CM ATTEMPTED TO CONTACT PTS SON/PRIMARY CONTACT, BILL [phone] VM MESSAGE LEFT WITH [employer] AND INFORMING HIM A COPY WOULD BE LEFT AT BEDSIDE CM WILL CALL BACK TOMORROW
[2021-12-19 19:08] VITALS: BP 138/68; PULSE 59; RESP 18; TEMP 36.8; O2SAT 97
[2021-12-19] MEDS: Atorvastatin Calcium 10 MG TABLET PO (19:50)
[2021-12-19] MEDS: Haloperidol Lactate 5 MG/ML VIAL IVPUSH (22:05)
[2021-12-19 23:21] VITALS: BP 158/76; PULSE 67; RESP 18; TEMP 36.4; O2SAT 94
[2021-12-20] VITALS (7 sets, daily range): BP systolic 112–160; BP diastolic 63–87; PULSE 63–85; RESP 14–20; TEMP 35.5–37.3; O2SAT 94–100
[2021-12-20] MEDS: atenoloL 25 MG TABLET 12.5 MG PO (09:02)
[2021-12-20] MEDS: Docusate Sodium 100 MG CAPSULE PO ×2 (09:02→19:59)
[2021-12-20] MEDS: Apixaban 5 MG TABLET 10 MG PO ×2 (09:02→19:59)
[2021-12-20] MEDS: 0.9 % Sodium Chloride Flush 3 ML SYRINGE IVFLUSH ×4 (09:02→22:00)
--- NOTE | 2021-12-20 09:13 | P.PNIM_ITS ---
Subjective Subjective Date of Service: 12/20/21 Interval History: cC: weakness interval history: no complaints, confused Cardiovascular Cardiovascular: Reports no additional cardiovascular complaints Respiratory Respiratory: Reports no additional respiratory complaints Physical Exam Vital Signs: Vital Signs: Last Vital Signs Temp 99.2 F 12/20/21 07:20 Pulse 80 12/20/21 07:29 Resp 20 12/20/21 07:20 BP 149/63 H 12/20/21 07:29 Pulse Ox 100 12/20/21 07:29 BMI result Body Mass Index 21.7 General: oriented to person only, teary Resp: CTA bilateral, no accessory muscles used CVS: S1,S2,RRR GI: soft, non tender, non distended Neuro: motor grossly intact, alert Psych: impaired insight Objective Data Active Medications Acetaminophen (Acetaminophen 325 Mg Tablet) 650 mg PO Q6H PRN PRN Reason: Pain, Mild (Pain Scale 1-3) Last Admin: 12/19/21 08:50 Dose: 650 mg Documented by: LOUIS Apixaban (Apixaban 5 Mg Tablet) 10 mg PO BID [facility] Stop: 12/24/21 21:01 Last Admin: 12/19/21 19:51 Dose: 10 mg Documented by: EDWIN Atenolol (Atenolol 25 Mg Tablet) 12.5 mg PO DAILY [facility]; Protocol Last Admin: 12/19/21 08:49 Dose: 12.5 mg Documented by: LOUIS Atorvastatin Calcium (Atorvastatin Calcium 10 Mg Tablet) 10 mg PO BEDTIME [facility] Last Admin: 12/19/21 19:50 Dose: 10 mg Documented by: EDWIN Calcium Carbonate/Cholecalciferol (Calcium + Vitamin D 250 Mg Tablet) 250 mg PO Q2D [facility] Last Admin: 12/18/21 09:38 Dose: 250 mg Documented by: LOUIS Cyanocobalamin (Cyanocobalamin (Vitamin B-12) 1,000 Mcg Tablet) 1,000 mcg PO Q2D [facility] Last Admin: 12/18/21 09:38 Dose: 1,000 mcg Documented by: LOUIS Docusate Sodium (Docusate Sodium 100 Mg Capsule) 100 mg PO BID [facility] Last Admin: 12/19/21 19:51 Dose: 100 mg Documented by: EDWIN Magnesium Hydroxide (Milk Of Magnesia 30 Ml Oral.Susp) 30 ml PO DAILY PRN PRN Reason: Constipation Senna (Sennosides 8.6 Mg Tablet) 17.2 mg PO BEDTIME PRN PRN Reason: Constipation Sodium Chloride (0.9 % Sodium Chloride Flush 3 Ml Syringe) 3 ml IVFLUSH QSHIFT [facility] Last Admin: 12/19/21 19:50 Dose: 3 ml Documented by: EDWIN Labs CBC & Chem 7: 12/19/21 05:04 12/19/21 05:04 Microbiology Microbiology Results: Microbiology 12/17/21 16:14 Blood Culture - Preliminary Blood - Venous No growth after 48 hours. 12/17/21 16:14 Blood Culture - Preliminary Blood - Venous No growth after 48 hours. 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
--- NOTE | 2021-12-20 09:13 | MHC.CM.PN ---
PATIENT IS CURRENTLY UNABLE TO PARTICIPATE IN ACCURATE ASSESSMENT CONVERSATION. SHE BELIEVES THIS VICE PRESIDENT MEDIA RELATIONS IS HER SISTER, AND THAT SHE IS TOO SCARED TO RETURN HOME AT THIS TIME THERE ARE TOO MANY GHOSTS THERE SHE IS ABLE TO IDENTIFY SAMAN AND GHANSHYAM HER CHILDREN. CALL TO SAMAN ([phone]) WHO THEN ASKS THAT THIS WRITE CALL GHANSHYAM. CALL TO GHANSHYAM @ [phone] WHO TELLS THIS VICE PRESIDENT MEDIA RELATIONS THAT ALTHOUGH THERE IS A POA COMPLETED, SHE IS UNSURE IF THERE IS A HCP. PATIENT LIVES ALONE SHE USES A [facility] FAMILY DOES MAJORITY OF CHORES AND ERRANDS FOR PATIENT. SHE HAS BEEN VACCINATED X 3 AGAINST COVID-19 MODERNA SERIES 11/11/20 12/09/20 07/22/21 GHANSHYAM WILL DISCUSS SNF OPTIONS WITH HER BROTHER AND CALL THIS VICE PRESIDENT MEDIA RELATIONS BACK. SHE DOES PREFER THAT PATIENT BE ABLE TO RETURN HOME WITH SERVICES THOUGH. PATIENT LIVES IN [facility] AND A REFERRAL FOR SERVICES WOULD NEED TO BE MADE TO [facility]. PCP IS [facility] IN [facility] BUT GHANSHYAM IS UNABLE TO RECALL PROVIDER NAME CALL TO [phone] BUT NO ANSWER ON THIS ATTEMPT. IMM 12/20 IN ROOM FOR FAMILY TO GATHER PER PATIENT REQUEST.
[2021-12-20] MEDS: Calcium + Vitamin D 250 MG TABLET PO (09:55)
[2021-12-20] MEDS: Cyanocobalamin (Vitamin B-12) 1,000 MCG TABLET 1000 MCG PO (09:55)
--- NOTE | 2021-12-20 12:45 | MHC.CLN ---
NUTRITION NUTRITION CONSULT FOR SKIN INTEGRITY. STAGE I TO COCCYX. INTAKE AT MEALS APPEARS USUALLY GOOD, 50-100%. DIET=2 GRAM SODIUM. NO NEW NUTRITION INTERVENTIONS AT THIS TIME.
--- NOTE | 2021-12-20 13:38 | MHC.CM.PN ---
DAUGHTER GHANSHYAM IN ROOM. PATIENT ABLE TO IDENTIFY DAUGHTER FIRST CHOICE ON HCP SON IS SECOND CHOICE (MAYELA) HCP COMPLETED AND SIGNED TO BEST OF PATIENT'S ABILITY (ABLE TO SPELL NAME CORRECTLY; HOWEVER, UNABLE TO MAINTAIN HANDWRITING ON SIGNATURE LINE) DAUGHTER REQUESTS REFERRAL TO [facility], NOW PLACED. WILL STILL NEED PT DAILY NOTE INDICATING RECOMMENDATIONS.
--- NOTE | 2021-12-20 14:32 | MHC.CM.PN ---
[facility] WILLING TO FOLLOW PENDING PATIENT BEING ABLE TO PARTICIPATE WITH PHYSICAL THERAPY. FACILITY WILL ALSO NEED A COPY OF VACCINATION CARD. CASE MANAGEMENT FOLLOWING.
[2021-12-20] MEDS: Atorvastatin Calcium 10 MG TABLET PO (19:59)
[2021-12-20] MEDS: Haloperidol Lactate 5 MG/ML VIAL 2.5 MG IVPUSH (21:59)
--- NOTE | 2021-12-20 22:01 | MHC.PIE ---
p; pt anxious, agitated, confused, restless and trying to get out of bed numerus times. i; dr bender notified; new order Haldol iv now e; will cont to monitor
[2021-12-21] VITALS (7 sets, daily range): BP systolic 99–137; BP diastolic 57–76; PULSE 54–79; RESP 14–18; TEMP 36.3–36.8; O2SAT 95–98
--- NOTE | 2021-12-21 08:58 | PC.NURSE ---
Skin assessment completed. Patient has a stage 1 pressure injury to coccyx. Barrier cream applied, turn and repositioning occurring q 2 h.
[2021-12-21] MEDS: atenoloL 25 MG TABLET 12.5 MG PO (10:34)
[2021-12-21] MEDS: Docusate Sodium 100 MG CAPSULE PO ×2 (10:34→20:08)
[2021-12-21] MEDS: Apixaban 5 MG TABLET 10 MG PO ×2 (10:34→20:08)
[2021-12-21] MEDS: 0.9 % Sodium Chloride Flush 3 ML SYRINGE IVFLUSH ×2 (10:34→20:08)
[2021-12-21 13:09] LABS: COVID-19 Test Negative (Negative); IDNOW Serial# 08D9AD1C
--- NOTE | 2021-12-21 13:25 | HO.PM.IMPN ---
Subjective Subjective Date of Service: 12/21/21 Physical Exam Vital Signs: Vital Signs: Last Vital Signs Temp 98.2 F 12/21/21 11:31 Pulse 63 12/21/21 11:31 Resp 18 12/21/21 11:31 BP 99/57 L 12/21/21 11:31 Pulse Ox 95 12/21/21 11:31 BMI result Body Mass Index 21.7 Objective Data Active Medications Acetaminophen (Acetaminophen 325 Mg Tablet) 650 mg PO Q6H PRN PRN Reason: Pain, Mild (Pain Scale 1-3) Last Admin: 12/19/21 08:50 Dose: 650 mg Documented by: LOUIS Apixaban (Apixaban 5 Mg Tablet) 10 mg PO BID [facility] Stop: 12/24/21 21:01 Last Admin: 12/21/21 10:34 Dose: 10 mg Documented by: EDWIN Atenolol (Atenolol 25 Mg Tablet) 12.5 mg PO DAILY [facility]; Protocol Last Admin: 12/21/21 10:34 Dose: 12.5 mg Documented by: EDWIN Atorvastatin Calcium (Atorvastatin Calcium 10 Mg Tablet) 10 mg PO BEDTIME [facility] Last Admin: 12/20/21 19:59 Dose: 10 mg Documented by: EDWIN Calcium Carbonate/Cholecalciferol (Calcium + Vitamin D 250 Mg Tablet) 250 mg PO Q2D [facility] Last Admin: 12/20/21 09:55 Dose: 250 mg Documented by: MART Cyanocobalamin (Cyanocobalamin (Vitamin B-12) 1,000 Mcg Tablet) 1,000 mcg PO Q2D [facility] Last Admin: 12/20/21 09:55 Dose: 1,000 mcg Documented by: MART Docusate Sodium (Docusate Sodium 100 Mg Capsule) 100 mg PO BID [facility] Last Admin: 12/21/21 10:34 Dose: 100 mg Documented by: EDWIN Magnesium Hydroxide (Milk Of Magnesia 30 Ml Oral.Susp) 30 ml PO DAILY PRN PRN Reason: Constipation Senna (Sennosides 8.6 Mg Tablet) 17.2 mg PO BEDTIME PRN PRN Reason: Constipation Sodium Chloride (0.9 % Sodium Chloride Flush 3 Ml Syringe) [facility] Last Admin: 12/21/21 10:34 Dose: 3 ml Documented by: EDWIN Labs CBC & Chem 7: 12/19/21 05:04 12/19/21 05:04 Labs: Laboratory Results - last 24 hr 12/21/21 12:27 COVID-19 (MARIANA) Negative COVID-19 Clin Com See Note Assessment and Plan (1) Labial lesion: Status: Acute (2) Endometrial thickening on ultrasound: Status: Acute (3) Pulmonary embolism: Status: Acute Plan 86F presented with weakness, found to have PE and pelvic mass acute pulmonary embolism asymptomatic non occulisive, in secondary pulm arteries of RLL no need for echo at this time changed to eliquis 10mg bid for 7 days (day4) then decrease to 5mg bid monitor closely for gi bleed, A/C tolerance uterine wall thickening no clear masses was noticed Gynecology input appreciated, no biopsy needed if no bleeding at this point MRI showed evidence of endometrial thickening with no clear masses to follow-up as outpatient with Gynecology for labial lesions biopsy physical deconditioning Will need placement at SNF per PT dementia likely alzheimers progressing compression fractures due to osteopenia ambulate as tolerated - PT eval htn atenolol hld statin DNR/DNI reason for continued hospitalization: patient unsafe at home due to cognitive and physical defeciencies, awaiting Safe discharge planning with placement at SNF. Quality Stroke Does the patient have a stroke diagnosis?: No VTE Prior VTE?: No VTE Risk Level:: Medical - moderate - high VTE Device Contraindication: Treatment Not Indicated VTE Drug Contraindication: N/A - Med Ordered
--- NOTE | 2021-12-21 19:54 | PM.EVENT ---
Event Note Date of Service: 12/21/21 Event Note: nurse reported that pt has had no urinary output all day. Bladder scan shows only 75 cc. shes also noted to have very minimal oral water intake . Will order bmp and place her on LR
[2021-12-21] MEDS: Lactated Ringers 1,000 ML 80 ML IVCONT (20:07)
[2021-12-21] MEDS: Atorvastatin Calcium 10 MG TABLET PO (20:08)
[2021-12-21 20:27] LABS: Anion Gap 12 (12-20); Blood Urea Nitrogen 18 mg/dL (9-16); Calcium 9.1 mg/dL (8.4-10.2); Carbon Dioxide 25 mmol/L (22-29); Chloride 106 mmol/L (96-108); Creatinine Clr Calc Pharmacy 45.8; Estimated Glomerular Filt Rate > 60; Glucose Random 104 mg/dL (60-115); Potassium 4.3 mmol/L (3.3-5.1); Sodium 139 mmol/L (135-145)
[2021-12-21 20:34] LABS: B Type Natriuretic Peptide 38 pg/mL (<100)
[2021-12-22 03:16] VITALS: BP 131/77; PULSE 56; RESP 14; TEMP 36.2; O2SAT 98
[2021-12-22 05:46] LABS: Hematocrit 42.4 % (37.0-47.0); Hemoglobin 13.8 g/dl (12.0-16.0); Mean Corpuscular HGB Conc 32.5 g/dl (31.0-35.0); Mean Corpuscular Hemoglobin 31.1 pg (27.0-33.0); Mean Corpuscular Volume 95.5 fL (80.0-98.0); Mean Platelet Volume 9.5 fL (9.4-12.3); Platelet Count 193 X10*3/uL (160-400); Red Blood Count 4.44 X10*6/uL (4.20-5.50); Red Cell Distribution Width 12.4 % (11.0-16.0); White Blood Count 5.6 X10*3/uL (4.8-10.8)
[2021-12-22 07:13] VITALS: BP 125/65; PULSE 59; RESP 18; TEMP 36; O2SAT 97
[2021-12-22] MEDS: 0.9 % Sodium Chloride Flush 3 ML SYRINGE IVFLUSH (08:42)
[2021-12-22] MEDS: Apixaban 5 MG TABLET 10 MG PO (08:42)
[2021-12-22] MEDS: Calcium + Vitamin D 250 MG TABLET PO (08:42)
[2021-12-22] MEDS: Cyanocobalamin (Vitamin B-12) 1,000 MCG TABLET 1000 MCG PO (08:42)
[2021-12-22] MEDS: Docusate Sodium 100 MG CAPSULE PO (08:42)
[2021-12-22 09:53] VITALS: BP 125/65; PULSE 59; O2SAT 97
--- NOTE | 2021-12-22 09:55 | MHC.CM.PN ---
Addendum entered by Sheree Pugh 12/22/21 12:02: SON, BERENICE, IN ROOM AND AWARE OF [facility] REQUEST TO SUNDAR CARMICHAEL TODAY RN AWARE OF PLAN. IMM 12/21 IN CHART Original Note: Sundar carmichael requesting patient's social security number Daughter Becki provided the number which was them relayed to the [facility]. [facility] registration dept notified of correct number via [employer] quick task.
[2021-12-22 12:00] VITALS: BP 107/65; PULSE 71; RESP 18; TEMP 36.4; O2SAT 96
--- NOTE | 2021-12-22 12:09 | PM.DS ---
DS: Providers Provider Date of Service: 12/22/21 Date of admission: 12/17/21 23:04 Primary care physician: Unknown Physician Consults: 12/17/21 23:04 Consult to Hematology / Oncology Routine Consulting Provider: Candelario Yousif Reason for consultation: PE; pelvic mass 12/18/21 12:02 Consult to Obstetrics / Gynecology Routine Consulting Provider: Shankar Moctezuma Reason for consultation: pelvic mass DS: Diagnosis Discharge Diagnosis (1) Pelvic mass: Status: Acute (2) Endometrial thickening on ultrasound: Status: Acute (3) Labial lesion: Status: Acute DS: Summary Hospital Course Hospital Course: admission note HPI 86-year-old female with a past medical history of hypertension, hyperlipidemia presented to the hospital with a chief complaint of altered mental status.? Most of the history obtained from the patient's family who mentioned that patient was noted to be more confused than her baseline.? Usually patient is forgetful but today noted to be more confused hence brought her to the hospital for further evaluation.? Mentions that patient had similar episode of confusion when she had UTI. Per ER team patient urinalysis was negative; CT scan showed no evidence of pneumonia; CT abdomen pelvis showed constipation as well as vertebral compression fractures-age indeterminate.? CT chest showed pulmonary embolism-given Lovenox.? Admitted for further management Hospital course the patient was evaluated for weakness. Images of the chest of CT angiogram showed an evidence of acute pulmonary embolism that was treated with p.o. Eliquis 10 mg twice daily for 5 days during the hospital. Plan to be discharged to finish the 10 mg b.i.d. and to start 5 mg twice daily after that. CT scan of the abdomen was concerning for possible mass. Confirmed by ultrasound at an MRI that showed evidence of endometrial thickening only with no clear masses. Evaluated by nut sheller machine operator Dr. Rhianna Tamez who recommended no biopsy needed at this point as no bleeding reported and asked to follow-up as outpatient for further evaluation and biopsy of labia lesions. Seen by physical therapy team who recommended short-term rehab stay. CT scan also confirmed and evidence of compression fractures at multiple levels secondary to osteopenia. Pain management mainly. Continue Eliquis 10 mg twice daily for 2 more days and then changed to 5 mg twice daily Use laxatives to keep your bowel moving. To follow-up with Dr. Moctezuma as outpatient Time Spent with Patient Time attestation: Total time spent providing and/or coordinating discharge services: Discharge coordination time: Greater than 30 minutes Quality: Safe Use of Opioids Does Pt have an Active Cancer Diagnosis on the Problem List?: No Quality: Stroke Does the patient have a stroke diagnosis?: No Physical Exam Vital Signs: Vital Signs: Last Vital Signs Temp 97.5 F 12/22/21 12:00 Pulse 71 12/22/21 12:00 Resp 18 12/22/21 12:00 BP 107/65 12/22/21 12:00 Pulse Ox 96 12/22/21 12:00 BMI result Body Mass Index 21.7 Const: Other: Constitutional : Alert, Interactive, not in distress Neck : Normal inspection, Supple Cardiovascular : RRR, no JVP, no lower extremity edema Respiratory : fair bilateral air entry,? no crackles, wheezes or rhonchi Gastrointestinal:? soft, lax, Normal bowel sounds, Non tender Skin : Warm, Dry, bilateral chronic changes in lower extremity Neurological : Alert & oriented to self and her son, place but not exact time, no focal deficits noted but mildly confused at baseline DS: Data Data Completed and Pending Labs on day of discharge: Laboratory Results - last 24 hr 12/21/21 12/21/21 12/21/21 12:27 20:00 20:00 WBC RBC Hgb Hct MCV MCH MCHC RDW Plt Count MPV Absolute Nucleated RBC Nucleated RBC % (auto) Sodium 139 Potassium 4.3 Chloride 106 Carbon Dioxide 25 Anion Gap 12 BUN 18 H D Creatinine 0.71 Estim Creat Clear Calc 45.8 Estimated GFR > 60 Random Glucose 104 Calcium 9.1 B-Natriuretic Peptide 38 COVID-19 (MARIANA) Negative COVID-19 Clin Com See Note 12/22/21 05:29 WBC 5.6 RBC 4.44 Hgb 13.8 Hct 42.4 MCV 95.5 MCH 31.1 MCHC 32.5 RDW 12.4 Plt Count 193 MPV 9.5 Absolute Nucleated RBC 0.000 Nucleated RBC % (auto) 0.0 Sodium Potassium Chloride Carbon Dioxide Anion Gap BUN Creatinine Estim Creat Clear Calc Estimated GFR Random Glucose Calcium B-Natriuretic Peptide COVID-19 (MARIANA) COVID-19 Clin Com Preliminary micro results at discharge 12/17/21 16:14 Blood Culture - Preliminary Blood - Venous No growth after 48 hours. 12/17/21 16:14 Blood Culture - Preliminary Blood - Venous No growth after [address] scan - chest: Radiologist's impression: ITS Impressions Abdomen/Pelvis CT 12/17/21 19:05 IMPRESSION: Technically limited study revealed large amount of retained feces. There is pelvic mass extending from the uterus correlate with pelvic ultrasound. Multiple compression deformities of lumbar spine vertebral bodies. Dilated pancreatic duct Fleischner guidelines were followed. Chest CTA 12/17/21 19:05 IMPRESSION: Positive for pulmonary embolism with a nonocclusive linear clots seen in secondary pulmonary arteries of right lower lobe pulmonary. VTE: positive Critical result reported to Dulce Crow NP at 8:32 PM on 12/17/[address] 12/17/21 19:05 IMPRESSION: No acute intracranial pathology. Sequela of microangiopathy and central atrophy. Pelvis Ultrasound 12/19/21 08:16 IMPRESSION: Abnormally thickened endometrial stripe measuring 1.6 cm. Gynecology consultation recommended. Venous Duplex 12/19/21 08:31 IMPRESSION: No DVT demonstrated in the bilateral lower extremities. Pelvis MRI 12/19/21 13:00 IMPRESSION: Abnormally thickened heterogeneous endometrium measuring up to 1.8 cm. There also appears to be a second focal area of heterogeneity and thickening of the endometrium in the lower uterine segment or endocervical canal measuring up to 1.0 cm. SWEATBAND PERFORATOR consultation recommended. Ovaries not seen. Constipation. Discharge Plan Discharge Patient Disposition: [facility] Discharge Diagnosis: pulmonary embolism Endometrial thickening Labial lesions Referrals: [facility] [Outside] - 1 Week Physician,Unknown J [Primary Care Provider] - 1 Week Discharge Medications: New Eliquis 5 mg Tablet 10 mg PO BID 2 Days Qty: 8 0RF docusate sodium 100 mg Capsule 100 mg PO BID 30 Days Qty: 60 0RF senna leaf extract [senna] 176 mg/5 mL Syrup 15 ml PO BEDTIME 30 Days Qty: 450 0RF Eliquis 5 mg tablet 5 mg PO BID Qty: 60 0RF Continued atenolol 25 mg tablet 12.5 mg PO DAILY 0RF simvastatin 20 mg tablet 1 tab PO BEDTIME 0RF furosemide 20 mg tablet 10 mg PO DAILY 0RF cyanocobalamin (vitamin B-12) 1,000 mcg Tablet 1,000 mcg PO Q OTHER DAY 0RF calcium citrate-vitamin D3 [Citracal + D Maximum] 315 mg-6.25 mcg (250 unit) Tablet 1 tab PO Q OTHER DAY 0RF Discharge Orders: Discharge Order (Routine); Ordered 12/22/21 Ordered By: Shahida Hansen Diet: advance to usual diet Activity on Discharge: As tolerated Stand Alone Forms: Patient Portal Discharge page Care Plan Goals: Read below Health Concerns: Read below Plan of Treatment: Read below Assessment: you were admitted to the hospital for evaluation of altered mentation. Evidence showed clot into your lungs that was treated with blood thinner with fair response. You were also noted to have a wall thickening of your uterus that was evaluated by nut sheller machine operator who recommended outpatient follow-up for biopsy of labial lesions. Seen by Physical therapy who recommended short-term rehab stay. Continue Eliquis 10 mg twice daily for 2 more days and then changed to 5 mg twice daily Use laxatives to keep your bowel moving. To follow-up with Dr. Moctezuma as outpatient
[2021-12-22 12:28] LABS: Influenza A PCR NEGATIVE (Negative); Influenza B PCR NEGATIVE (Negative); Resp Syncy Virus RNA Qual PCR NEGATIVE (Negative); SARS COV2 PCR INHOUSE NEGATIVE (Negative)
== END 2021-12-22 14:45 | disposition skilled nursing facility (03) | DRG 175 ==
LOC: HO.ED 21:02 → HO.EDOVER 23:12 → HO.S3 12-18 06:08
PROVIDERS: Internal Medicine; Nurse Practitioner Family; Physician Assistant; Admitting Provider Hospitalist; Emergency Provider Emergency Medicine; Visit Provider Student in an Organized Health Care Education/Training Program
DX: I26.99 Other pulmonary embolism without acute cor pulmonale (principal); G92.8 Other toxic encephalopathy; N39.0 Urinary tract infection, site not specified; M48.56XA Collapsed vertebra, not elsewhere classified, lumbar region, initial encounter for fracture; D68.59 Other primary thrombophilia; N17.9 Acute kidney failure, unspecified; N89.8 Other specified noninflammatory disorders of vagina; N85.00 Endometrial hyperplasia, unspecified; M85.88 Other specified disorders of bone density and structure, other site; Z66 Do not resuscitate; K59.00 Constipation, unspecified; E78.5 Hyperlipidemia, unspecified; E86.0 Dehydration; Z88.2 Allergy status to sulfonamides; Z79.01 Long term (current) use of anticoagulants; Z79.899 Other long term (current) drug therapy
CPT/HCPCS: 0241U; 36415; 70450; 71275; 72195; 74177; 76856; 80048; 80053; 81003; 82306; 82550; 83605; 83690; 83735; 83880; 85025; 85027; 85610; 85730; 87040; 87635; 93005; 93970; 96360; 96372; 97116; 97162; 97530; 99285; J1650; Q9967

== ENCOUNTER 2024-11-18 16:13 | Emergency (ER) | payer MEDICARE, OTHER, SELFPAY ==
--- NOTE | ~2024-11-18 | US_ITS ---
CLINICAL HISTORY: dysfunctional uterine bleeding US female pelvis LMP:Postmenopausal. Technique: Ultrasound examination of the pelvis was performed with transabdominal and transvaginal technique for better visualization of the endometrium. Comparison: MR/SR - MR PELVIS WO CON - 12/19/21 12:29 EDT US/SR - US PELVIC COMPLETE - 12/19/21 08:[address]/[place]/SR - CT ABDOMEN PELVIS W CON - 12/17/21 18:11 EDT Findings: Anteverted uterus measuring 6.2 x 2.0 x 4.1cm without masses. Thickened heterogeneous endometrium measuring 1.5cm. There are small cystic spaces within endometrium. The endometrium was also thickened on prior MR, measuring 2.0 cm. On the prior ultrasound the endometrium measuring 1.6 cm. On the prior CT endometrium measured 1.5 cm. Uterine/endometrial calcifications are best seen on the CT. The ovaries were not visualized. No lesions in the adnexa. No free fluid. Impression: Thickened endometrium could be secondary to endometrial hyperplasia or carcinoma. Nonemergent referral to gynecology is recommended for tissue sampling. This document has been electronically signed by: Roxy Huizar MD on 11/18/2024 19:41:47
[2024-11-18 16:31] VITALS: BP 116/83; PULSE 75; RESP 18; TEMP 36.5; O2SAT 93; BMI 24.9
--- NOTE | 2024-11-18 16:40 | ED.GENADULT ---
HPI - General Adult General Chief complaint: Vaginal Bleeding Stated complaint: Vaginal bleeding with clots Time Seen by Provider: 11/18/24 19:05 Source: family Mode of arrival: wheelchair Limitations: no limitations History of Present Illness ED Provider: Dr. Meaghan Conrad HPI narrative: Patient comes to the emergency room complaining of vaginal bleeding. According to the family, patient is on Eliquis, today the staff at the nursing facility, patient is poor historian, denies any abdominal pain, denies any UTI symptoms. Related Data Home Medications ?Medication ?Instructions ?Recorded ?Confirmed atenolol 25 mg tablet 12.5 mg PO DAILY 12/17/21 12/17/21 calcium 315 mg (as 1 tab PO Q OTHER DAY 12/17/21 12/17/21 citrate)-vitamin D3 6.25 mcg (250 unit) tablet (Citracal + Vitamin D Maximum) cyanocobalamin (vitamin B-12) 1,000 mcg PO Q OTHER DAY 12/17/21 12/17/21 1,000 mcg tablet furosemide 20 mg tablet 10 mg PO DAILY 12/17/21 12/17/21 simvastatin 20 mg tablet 1 tab PO BEDTIME 12/17/21 12/17/21 Previous Rx's ?Medication ?Instructions ?Recorded apixaban 5 mg tablet (Eliquis) 5 mg PO BID #60 tabs 12/22/21 apixaban 5 mg tablet (Eliquis) 10 mg (2 x 5 mg) PO BID 2 days #8 12/22/21 tabs docusate sodium 100 mg capsule 100 mg PO BID 30 days #60 caps 12/22/21 senna leaf extract 176 mg/5 mL 15 ml PO BEDTIME 30 days #450 mL 12/22/21 oral syrup (senna) cefuroxime axetil 250 mg tablet 250 mg PO BID #14 tabs 11/19/24 Allergies Allergy/AdvReac Type Severity Reaction Status Date / Time Sulfa (Sulfonamide Allergy Unknown Verified 11/18/24 16:35 Antibiotics) Review of Systems Review of Systems: Per staff, patient has vaginal bleeding Yes Other PMFSH Past Medical History Medical History Labial lesion Endometrial thickening on ultrasound Pulmonary embolism Edema HLD (hyperlipidemia) Social History Social History Household Members: Unknown / Unable to assess Housing: Unknown / Unable to assess Housing Other:: pt states family and neighbor helps her out, but unclear living situation Do you presently have visiting nurse or other home services: No Patient Tobacco Use Status: Never used Tobacco Smoked in Last 30 Days: No Use of substances other than those prescribed or required for medical reasons: No Advance Directives: Yes Advance Directives on File: Yes Advance Directives Date on File: 12/18/21 Do you have a plan to hurt others: No Plan service: No Current occupational status: retired Physical Exam ED Vital Signs: Vital Signs - 24 hr 11/18/24 16:31 11/18/24 20:28 11/18/24 22:17 Temperature 97.7 F 98.7 F 98.3 F Pulse Rate 75 61 55 Respiratory Rate 18 16 16 Blood Pressure 116/83 139/81 141/75 H Pulse Oximetry 93 94 97 Oxygen Delivery Method Room Air Room Air Room Air BMI result Body Mass Index 24.9 Const Other: Appearance: Alert. Oriented X3. No acute distress. Eyes: Pupils equal, round and reactive to light. ENT: Pharynx normal. Neck: Normal inspection. Neck supple. No lymph nodes noted. No crepitus CVS: Normal heart rate and rhythm. Pulses normal. Normal S1 and S2 Respiratory: No respiratory distress. Breath sounds normal. No Wheezing. No rales Abdomen: Soft and nontender. No rigidity. No distention. : At the 3 o'clock position in the vaginal wall, there is a skin tag that has scant amount of bleeding. In the service, there is no active bleeding. However, there is a brownish liquid filling up the vaginal vault. Does not seem to be coming from the cervix Or urethra not feculent either Skin: Skin warm and dry. Normal skin color. Normal skin turgor. Extremities: No lower extremity edema. No Lacerations. No Rash Neuro: Oriented X 3. No motor deficit. No sensory deficit. Moving all extremities. No slurred speech. CN 2 through 12 grossly intact Psych: calm, cooperative, normal affect Course Course Course Narrative: This is a rapid medical exam performed by Christine Jones PA-C. The patient was 88-year-old female with a history of PE on Eliquis, dementia, coming from assisted living with heavy vaginal bleeding that began today. Per family, they have had to change pads 3-4 times today. Patient had similar presentation in 2021, a uterine biopsy was never obtained. Plan to repeat the ultrasound and screening labs. The patient was stable and can return to the waiting room pending her full medical assessment. Medical Decision Making Medical Decision Making [facility] Narrative: My interpretation of labs: Normal hematology, no significant abnormality in patient's chemistry ultrasound: Thickening endometrium measuring 1.5 cm. MRI in December of 2021 showed a thickening of endometrium measuring 2.0 cm and the ultrasound around the same time, endometrium measured 1.6 cm. according to the family, patient has a new OBGYN in [facility]. They will follow-up with him. They are requesting the phone number of Dr. Moctezuma. routine swabs were obtained including bacterial vaginosis. I reviewed patient's past medical records. In December of 2021, Dr. Moctezuma was consulted. there was a discrepancy between the CT scans of the pelvis and ultrasound, MRI was ordered. At that time, patient had no vaginal bleeding. per Dr. Moctezuma's note, A thickened endometrium by ultrasound in the setting of no vaginal bleeding does not warrant any further investigation. It was recommended to do outpatient biopsy of to labial /vulvar lesions to exclude JAYCE/Melanoma or any other pathology. today, patient did not have any vulvar lesions, but did have one skin tag lesion in the actual vaginal canal at the 3 o clock position. At the time of my exam, the skin tag was not bleeding. when patient came back from ultrasound, there was a small to moderate amount of blood in the patient's depends. Unclear if earlier today patient had vaginal bleeding from the skin tag versus actual vaginal bleeding. urinalysis: positive for UTI, no gross hematuria present patient was given the 1st dose of cefuroxime in the emergency room overall, the vaginal bleeding that the patient experienced today could be secondary to the small vaginal lesion in the vaginal wall versus uterine bleeding. patient's endometrial thickening is not new. However, I discussed with the patient's family that it would be best to have the patient be seen by OBGYN. If the vaginal bleeding continues and it is determined to be the uterus, patient may need a biopsy. Occult blood: negative for occult blood Lab Data [facility] Lab Attestation statement: I reviewed the patient's lab results. 11/18/24 16:45 11/18/24 16:45 Labs: Lab Results 03/11/19/24 11/19/24 Range/Units 16:45 01:49 02:01 WBC 5.3 (4.8-10.8) X10*3/uL RBC 4.63 (4.20-5.50) X10*6/uL Hgb 14.7 (12.0-16.0) g/dl Hct 43.3 (37.0-47.0) % MCV 93.5 (80.0-98.0) fL MCH 31.7 (27.0-33.0) pg MCHC 33.9 (31.0-35.0) g/dl RDW 12.8 (11.0-16.0) % Plt Count 182 (160-400) X10*3/uL MPV 10.1 (9.4-12.3) fL Immature Gran % (Auto) 0.2 (0.0-0.4) % Neut % (Auto) 63.0 (45-73) % Lymph % (Auto) 21.1 (20-40) % [place] % (Auto) 12.5 H (2-11) % Eos % (Auto) 2.6 (0-4) % Baso % (Auto) 0.6 (0-2) % Lymph # (Auto) 1.1 L (1.2-4.9) X10*3/uL [place] # (Auto) 0.7 (0.1-1.2) X10*3/uL Eos # (Auto) 0.1 (0.0-0.4) X10*3/uL Baso # (Auto) 0.0 (0.0-0.2) X10*3/uL Abs Immat Gran (auto) 0.01 (0.00-0.03) X10*3/uL Absolute Neuts (auto) 3.3 (2.0-8.3) x10*3/uL Absolute Nucleated RBC 0.000 (0.0-0.012) X10*3/uL Nucleated RBC % (auto) 0.0 (0.0-0.2) /100WBC Sodium 140 (135-145) mmol/L Potassium 4.1 (3.3-5.1) mmol/L Chloride 107 (96-108) mmol/L Carbon Dioxide 24 (22-29) mmol/L Anion Gap 13 (12-20) BUN 21 H (9-16) mg/dL Creatinine 0.82 (0.5-1.4) mg/dL Estim Creat Clear Calc 45.1 Estimated GFR > 60 Random Glucose 103 (60-115) mg/dL Calcium 9.5 (8.4-10.2) mg/dL Magnesium 2.2 (1.6-2.6) mg/dL Total Bilirubin 0.7 (0.0-1.0) mg/dL AST 35 H (5-31) U/L ALT 42 H (0-31) U/L Alkaline Phosphatase 72 (39-117) U/L Total Protein 7.4 (6.5-8.0) g/dL Albumin 4.1 (3.5-5.0) g/dL Urine Color Yellow Urine Appearance Turbid Urine pH 6.5 (5.0-9.0) Ur Specific [place] 1.010 (1.005-1.025) Urine Protein Trace (Neg-Trace) mg/dL Urine Glucose (UA) Negative (Negative) mg/dL Urine Ketones Negative (Negative) mg/dL Urine Blood Moderate (2+) H (Negative) Urine Nitrite Positive H (Negative) Ur Leukocyte Esterase Large (3+) H (Negative) Urine RBC 11-20 H (0-2) /HPF Urine WBC >50 H (0-5) /HPF Ur Squamous Epith Cells 0-2 (0-2) /HPF Urine Bacteria 4+ (None Seen) Hyaline Casts 0-2 (0-2) /LPF Stool Occult Blood NEGATIVE (NEGATIVE) Independent Interpretation I performed an independent interpretation of an: Ultrasound Radiology Impression Discussion of test interpretation with radiology: I have reviewed the radiologist's reading. Radiologist Impression: Anteverted uterus measuring 6.2 x 2.0 x 4.1cm without masses. Thickened heterogeneous endometrium measuring 1.5cm. There are small cystic spaces within endometrium. The endometrium was also thickened on prior MR, measuring 2.0 cm. On the prior ultrasound the endometrium measuring 1.6 cm. On the prior CT endometrium measured 1.5 cm. Uterine/endometrial calcifications are best seen on the CT. The ovaries were not visualized. No lesions in the adnexa. No free fluid. Impression: Thickened endometrium could be secondary to endometrial hyperplasia or carcinoma. Nonemergent referral to gynecology is recommended for tissue sampling. Discharge Plan Discharge Clinical Impression: Vaginal lesion, Abnormal vaginal bleeding, Acute UTI Patient Disposition: Home, Self-Care Instructions: Dysfunctional Uterine Bleeding (ED), Urinary Tract Infection in Older Adults (ED) Additional Instructions: Please follow-up with your primary care physician tomorrow. If you have any worsening or new symptoms, please return to the emergency room or call 911 Prescriptions: New cefuroxime axetil 250 mg tablet 250 mg PO BID Qty: 14 0RF No Action atenolol 25 mg tablet 12.5 mg PO DAILY simvastatin 20 mg tablet 1 tab PO BEDTIME furosemide 20 mg tablet 10 mg PO DAILY cyanocobalamin (vitamin B-12) 1,000 mcg Tablet 1,000 mcg PO Q OTHER DAY calcium citrate-vitamin D3 [Citracal + D Maximum] 315 mg-6.25 mcg (250 unit) Tablet 1 tab PO Q OTHER DAY Eliquis 5 mg Tablet 10 mg PO BID 2 Days Qty: 8 0RF docusate sodium 100 mg Capsule 100 mg PO BID 30 Days Qty: 60 0RF senna leaf extract [senna] 176 mg/5 mL Syrup 15 ml PO BEDTIME 30 Days Qty: 450 0RF Eliquis 5 mg tablet 5 mg PO BID Qty: 60 0RF Referrals: Shankar Moctezuma MD [Physician] - 2 days Print Language: Senegalese
[2024-11-18 16:49] LABS: MANUAL DIFF FLAG NO
[2024-11-18 16:52] LABS: Basophils Percent Auto 0.6 % (0-2); Eosinophils Absolute Auto 0.1 X10*3/uL (0.0-0.4); Eosinophils Percent Auto 2.6 % (0-4); Hematocrit 43.3 % (37.0-47.0); Hemoglobin 14.7 g/dl (12.0-16.0); Imm Gran Abs Auto 0.01 X10*3/uL (0.00-0.03); Imm Gran Pct Auto 0.2 % (0.0-0.4); Lymphocytes Absolute Auto 1.1 X10*3/uL (1.2-4.9); Lymphocytes Percent Auto 21.1 % (20-40); Mean Corpuscular HGB Conc 33.9 g/dl (31.0-35.0); Mean Corpuscular Hemoglobin 31.7 pg (27.0-33.0); Mean Corpuscular Volume 93.5 fL (80.0-98.0); Mean Platelet Volume 10.1 fL (9.4-12.3); Monocytes Absolute Auto 0.7 X10*3/uL (0.1-1.2); Monocytes Percent Auto 12.5 % (2-11); Neutrophils Absolute Auto 3.3 x10*3/uL (2.0-8.3); Platelet Count 182 X10*3/uL (160-400); Red Blood Count 4.63 X10*6/uL (4.20-5.50); Red Cell Distribution Width 12.8 % (11.0-16.0); White Blood Count 5.3 X10*3/uL (4.8-10.8)
[2024-11-18 17:04] LABS: Alanine Aminotransferase 42 U/L (0-31); Albumin Level 4.1 g/dL (3.5-5.0); Alkaline Phosphatase 72 U/L (39-117); Anion Gap 13 (12-20); Aspartate Amino Transferase 35 U/L (5-31); Bilirubin Total 0.7 mg/dL (0.0-1.0); Blood Urea Nitrogen 21 mg/dL (9-16); Calcium 9.5 mg/dL (8.4-10.2); Carbon Dioxide 24 mmol/L (22-29); Chloride 107 mmol/L (96-108); Creatinine Clr Calc Pharmacy 45.1; Estimated Glomerular Filt Rate > 60; Glucose Random 103 mg/dL (60-115); Magnesium 2.2 mg/dL (1.6-2.6); Potassium 4.1 mmol/L (3.3-5.1); Sodium 140 mmol/L (135-145); Total Protein 7.4 g/dL (6.5-8.0)
[2024-11-18 20:28] VITALS: BP 139/81; PULSE 61; RESP 16; TEMP 37.1; O2SAT 94
[2024-11-18 22:17] VITALS: BP 141/75; PULSE 55; RESP 16; TEMP 36.8; O2SAT 97
[2024-11-19 01:57] LABS: Appearance Urine Turbid; Color Urine Yellow; Glucose Urine UA Negative (Negative); Leukocyte Esterase Urine Large (3+) (Negative); Nitrite Urine Positive (Negative); PH 6.5 (5.0-9.0); UMIC TRIGGER UACC YES; Urine Blood Moderate (2+) (Negative); Urine Ketones Negative (Negative); Urine Protein Trace mg/dL (Neg-Trace)
[2024-11-19 01:59] LABS: Bacteria Urine 4+ (None Seen); Hyaline Casts Urine 0-2 /LPF (0-2); Squamous Epithelial Cell Urine 0-2 /HPF (0-2); UACC Culture Trigger YES; WBC Urine >50 /HPF (0-5)
[2024-11-19 02:04] LABS: OBS Int Ctl Valid YES; OBS1 NEGATIVE (NEGATIVE)
[2024-11-19] MEDS: cefuroxime axetiL 250 MG TABLET PO (02:28)
[2024-11-19 02:33] VITALS: BP 139/72; PULSE 55; RESP 16; TEMP 36.7; O2SAT 95
[2024-11-19 03:43] LABS: CT PCR NOT DETECTED (Not Detect.); NG PCR NOT DETECTED (Not Detect.)
[2024-11-19 11:15] LABS: Bacterial Vaginosis PCR NEGATIVE (Negative); Candida Group PCR NOT DETECTED (Not Detect); Candida glab krusei PCR NOT DETECTED (Not Detect); Trichomonas vaginalis PCR NOT DETECTED (Not Detect)
== END 2024-11-19 02:35 | disposition home or self-care (01) ==
PROVIDERS: Physician Assistant Medical; Emergency Provider Emergency Medicine
DX: N93.8 Other specified abnormal uterine and vaginal bleeding (principal); N39.0 Urinary tract infection, site not specified; N89.8 Other specified noninflammatory disorders of vagina; Z79.899 Other long term (current) drug therapy
CPT/HCPCS: 36415; 76830; 76856; 80053; 81001; 81515; 82272; 83735; 85025; 87086; 87088; 87186; 87491; 87591; 99284

== ENCOUNTER → 2024-11-18 16:38 | Outpatient (BNV) | payer MEDICARE, OTHER, SELFPAY | PROVIDERS: Visit Provider Radiology Diagnostic Radiology | DX: N95.0 Postmenopausal bleeding (principal) | CPT/HCPCS: 76830; 76856 ==